=== PATIENT | male | born 1985 | race Caucasian/White ===

== ENCOUNTER 2019-04-09 04:17 | Emergency (ER) | payer SELFPAY ==
[2019-04-09 04:23] VITALS: BP 136/89; PULSE 64; RESP 16; TEMP 36.6; O2SAT 100
--- NOTE | 2019-04-09 04:29 | ED.GENADUL_ITS ---
Discharge Plan Disposition Patient Disposition: HOME Condition: Good Discharge Details Chief Complaint: Nk/Back Pain Clinical Impression: Low back strain Primary Care Provider: Michelle Houston ED Provider: Peterson Machuca Meds and New Rx's Prescriptions: New ibuprofen 600 mg tablet 600 mg PO Q6H PRN (Reason: pain) Qty: 20 RF: 0 cyclobenzaprine 10 mg tablet 10 mg PO TID PRN (Reason: muscle spasm) Qty: 14 RF: 0 Continued albuterol sulfate 8.5 GM HFA aerosol inhaler 2 puff Inhalation PRN PRNRF: 0 Discharge Instructions Instructions: Low Back Strain (ED) Additional Instructions: Use heat and gentle stretching/massage to help relax the muscles. Ibuprofen and cyclobenzaprine as directed. Follow-up with primary care next week if not better. Return to ED for any neurologic changes, numbness, weakness, bladder or bowel dysfunction. Stand Alone Forms: Work Release Referrals: Michelle Houston [Primary Care Provider] - Medical Decision Making Lumbar strain with musculoskeletal back pain and spasm after shoveling on Monday. No neurologic symptomatology or concerns. No direct trauma. Recommend heat and gentle stretching/massage as well as ibuprofen and cyclobenzaprine which she was given here. Provided work note. Asked to follow-up with primary care if not better next week. Return to ED for neurologic changes or concerns. HPI General Mode of arrival: ambulatory . Date/Time Provider Initiated Documentation: 04/09/19 04:29 . Limitations to Documentation: no limitations . Information obtained by: patient and RN notes reviewed . HPI Narrative: Patient presents to ED for evaluation of low back pain. Pain developed after shoveling on Monday. He has tried ibuprofen and acetaminophen intermittently. Back is become more painful and stiff with difficulty bending and twisting. He has no bladder or bowel dysfunction. He has no abdominal pain. He has no numbness or weakness. Related Data Home Medications Medication Instructions Recorded Confirmed albuterol sulfate 2 puff INHALATION PRN PRN 02/25/13 04/09/19 cyclobenzaprine 10 mg PO TID PRN #14 tab 04/09/19 ibuprofen 600 mg PO Q6H PRN #20 tab 04/09/19 Previous Rx's Medication Instructions Recorded cyclobenzaprine 10 mg PO TID PRN #14 tab 04/09/19 ibuprofen 600 mg PO Q6H PRN #20 tab 04/09/19 Allergies Allergy/AdvReac Type Severity Reaction Status Date / Time blueberry [Blueberry] Allergy Unknown Unverified 04/09/19 04:28 Penicillins Allergy as chld Unverified 04/09/19 04:28 General Stated Complaint: Nk/Back Pain YASMEEN: 4 Review of Systems Narrative: As documented in HPI otherwise negative as below. Const: no fever, chills, weakness Resp: no cough, SOB, pleuritic pain CV: no CP, diaphoresis, edema, syncope GI: no abdominal pain, nausea, vomiting, diarrhea Neuro: no headache, numbness, focal weakness, confusion [facility] Medical History (Updated 04/09/19 @ 04:40 by Peterson Machuca MD) Asthma (Chronic) Kidney stones (Inactive) Seizure disorder (Inactive) Surgical History S/P arthroscopic knee surgery (Inactive) S/P cholecystectomy (Chronic) Social History Smoking/Tobacco Use Status: Current every day Drug use: Never Do you feel safe at home: Yes Do you feel safe in your relationship?: Yes Exam Narrative Exam Narrative: Vitals: Afebrile. Normal vitals and room air pulse oximetry. Const: WDWN male in NAD lying on stretcher with legs crossed, on phone. HEENT: NC/AT. Normal facial exam. Eyes: Normal conjunctiva and sclera. Neck: Supple. Trachea midline. Lungs: Normal respiratory effort. Back: Decreased range of motion in lower back in regards to bending and twisting. Low back tenderness diffusely across with spasm noted. Neuro: A+O x 3. Normal speech, mentation, gait. Cranial nerves II - XII grossly intact. No gross motor or sensory deficit. Ext: No C/C/E. Able to lift legs off bed without significant difficulty. Course Vital Signs Vital signs: Vital Signs Temperature 97.9 F 04/09/19 04:23 Pulse 64 04/09/19 04:23 Respiratory Rate 16 04/09/19 04:23 Blood Pressure 136/89 04/09/19 04:23 Pulse Oximetry 100 04/09/19 04:23 Temperature 97.9 F 04/09/19 04:23 Temperature Source Skin 04/09/19 04:23 Pulse 64 04/09/19 04:23 Respiratory Rate 16 04/09/19 04:23 Respiratory Effort Non-Labored 04/09/19 04:27 Blood Pressure 136/89 04/09/19 04:23 Blood Pressure Position Sitting 04/09/19 04:23 Pulse Oximetry 100 04/09/19 04:23 Oxygen Delivery Method Room Air 04/09/19 04:23 Oxygen Flow Rate 0 04/09/19 04:23 Pain Level 8 04/09/19 04:27
[2019-04-09] MEDS: Cyclobenzaprine 10 MG TAB PO (04:42)
[2019-04-09] MEDS: Ibuprofen 600 MG TAB PO (04:42)
[2019-04-09 04:46] VITALS: BP 136/89; PULSE 64; RESP 16; TEMP 36.6; O2SAT 100
== END 2019-04-09 04:45 | disposition home or self-care (01) ==
LOC: ER 04:51
PROVIDERS: Emergency Provider Emergency Medicine; PCP Nurse Practitioner Family
DX: S39.012A Strain of muscle, fascia and tendon of lower back, initial encounter (principal); X50.9XXA Other and unspecified overexertion or strenuous movements or postures, initial encounter
CPT/HCPCS: 99283

== ENCOUNTER 2019-08-30 06:29 | Emergency (ER) | payer SELFPAY ==
[2019-08-30 06:35] VITALS: BP 148/95; PULSE 77; RESP 16; TEMP 36.6; O2SAT 97
--- NOTE | 2019-08-30 06:46 | W.ED.GENAD ---
Discharge Plan Disposition Patient Disposition: HOME Condition: Good Discharge Details Chief Complaint: Sorethroat Clinical Impression: GERD (gastroesophageal reflux disease) Primary Care Provider: Michelle Houston ED Provider: Peterson Machuca [place] Meds and New Rx's Prescriptions: New omeprazole 40 mg capsule,delayed release(DR/EC) 40 mg PO DAILY Qty: 30 RF: 0 Discharge Instructions Instructions: Gastroesophageal Reflux Disease (ED) Additional Instructions: Symptoms that you are describing sound like severe reflux that may be irritating the vocal cords at this point. We will start you on omeprazole to treat severe reflux and have you follow-up with primary care in a couple of weeks. If continued significant symptoms consider referral to ENT. Return to the emergency department for fever, inability to swallow, difficulty breathing, chest pain. Referrals: Michelle Houston [Primary Care Provider] - Medical Decision Making Patient presenting with description of worsening heartburn/reflux over the course of a month. Now having throat pain and sensation of lump in his throat. He denies having chest pain or shortness of breath. He is able to swallow. Suspect reflux with irritation of the upper larynx by what he is describing. He is a smoker so consideration of ENT cancer could be considered. Think it is reasonable to start PPI and refer to primary care. If no improvement consider referral to ENT for nasopharyngeal laryngoscopy. Return to ED for fever, shortness of breath, chest pain, inability to swallow. HPI General Mode of arrival: ambulatory. Date/Time Provider Initiated Documentation: 08/30/19 06:45. Limitations to Documentation: no limitations. Information obtained by: patient and RN notes reviewed. HPI Narrative: Patient presents to ED with complaint of sore throat and difficulty swallowing. Patient reports like he feels like there is a lump in his throat. Points in the general area of his Olegario's apple. Denies fever, URI symptoms, cough, shortness of breath, chest pain. Is able to swallow. Reports heartburn and reflux for over a month now. Has tried medication like Tums, Rolaids, Pepto-Bismol without relief. Has not tried medications like ranitidine or omeprazole. Has not seen primary care. Currently on no medications. Is a smoker. Related Data Home Medications Medication Instructions Recorded Confirmed omeprazole 40 mg PO DAILY #30 cap 08/30/19 Previous Rx's Medication Instructions Recorded omeprazole 40 mg PO DAILY #30 cap 08/30/19 Allergies Allergy/AdvReac Type Severity Reaction Status Date / Time blueberry [Blueberry] Allergy Unknown Unverified 08/30/19 06:46 Penicillins Allergy as chld Unverified 08/30/19 06:46 General Stated Complaint: Sorethroat YASMEEN: 4 Review of Systems Narrative: As documented in HPI otherwise negative as below. Const: no fever, chills, weakness Resp: no cough, SOB, pleuritic pain CV: no CP, diaphoresis, edema, syncope GI: no abdominal pain, nausea, vomiting, diarrhea Neuro: no headache, numbness, focal weakness, confusion [facility] Medical History Asthma (Chronic) Kidney stones (Inactive) Seizure disorder (Inactive) Surgical History S/P arthroscopic knee surgery (Inactive) S/P cholecystectomy (Chronic) Social History Smoking/Tobacco Use Status: Current every day Tobacco Type: cigarettes Drug use: Never Do you feel safe at home: Yes Do you feel safe in your relationship?: Yes Exam Narrative Exam Narrative: Vitals: Afebrile. Elevated blood pressure otherwise normal vitals. Normal room air pulse ox. Const: WDWN male in NAD. HEENT: NC/AT. Normal facial exam. Normal mouth and oropharynx visualized with no exudate, edema, ulcerations. Eyes: Normal conjunctiva and sclera. Neck: Supple. Trachea midline. No stridor. No adenopathy. Lungs: Normal respiratory effort. Neuro: A+O x 3. Normal speech, mentation, gait. Cranial nerves II - XII grossly intact. No gross motor or sensory deficit. Course Vital Signs Vital signs: Vital Signs Temperature 97.9 F 08/30/19 06:35 Pulse 77 08/30/19 06:35 Respiratory Rate 16 08/30/19 06:35 Blood Pressure 148/95 H 08/30/19 06:35 Pulse Oximetry 97 08/30/19 06:35 Temperature 97.9 F 08/30/19 06:35 Temperature Source Temporal Artery Scan 08/30/19 06:35 Pulse 77 08/30/19 06:35 Respiratory Rate 16 08/30/19 06:35 Respiratory Effort 07/10/20 06:39 Blood Pressure 148/95 H 08/30/19 06:35 Blood Pressure Position Sitting 08/30/19 06:35 Pulse Oximetry 97 08/30/19 06:35 Oxygen Delivery Method Room Air 08/30/19 06:35 Oxygen Flow Rate 0 08/30/19 06:35
== END 2019-08-30 07:00 | disposition home or self-care (01) ==
LOC: ER 07:01
PROVIDERS: Emergency Provider Emergency Medicine; PCP Nurse Practitioner Family
DX: K21.9 Gastro-esophageal reflux disease without esophagitis (principal); R09.89 Other specified symptoms and signs involving the circulatory and respiratory systems; R12 Heartburn; F17.210 Nicotine dependence, cigarettes, uncomplicated
CPT/HCPCS: 99283

== ENCOUNTER → 2020-02-18 15:39 | Outpatient (REF) | payer OTHER, SELFPAY ==
[2020-02-18 15:45] LABS: HCT 54.7 % (40.0-50.0); HGB 18.8 g/dL (13.5-17.5); MCH 30.2 pg (27.0-33.0); MCHC 34.4 % (32.0-36.0); MCV 87.8 fL (80-95); MPV 10.8 fL (8.0-11.0); Platelet Count 265 10^3/uL (130-400); RBC 6.23 10^6/uL (4.36-5.78); RDW 13.2 % (11.8-14.1); RDW-SD 42.5 fL; WBC 9.31 10^3/uL (4.4-10.8)
[2020-02-18 16:01] LABS: Anion Gap 9.7 mmol/L (3-11); BUN 14 mg/dL (7-18); CO2 27.3 mmol/L (21.0-32.0); CREATININE 1.28 mg/dL (0.70-1.30); Calcium 9.2 mg/dL (8.5-10.1); Calculated LDL 124 mg/dL (<100); Chloride 105 mmol/L (98-107); Cholesterol 221 mg/dL (<200); Glucose 101 mg/dL (74-106); HDL Cholesterol 32 mg/dL (40-60); Potassium 4.3 mmol/L (3.5-5.1); Sodium 142 mmol/L (136-145); Triglyceride 325 mg/dL (<150)
== END ==
LOC: NCHCN 15:39
PROVIDERS: PCP Nurse Practitioner Family; Visit Provider Physician Assistant
DX: K21.9 Gastro-esophageal reflux disease without esophagitis (principal); E66.8 Other obesity
CPT/HCPCS: 80048; 80061; 85027

== ENCOUNTER 2020-04-01 03:47 | Emergency (ER) | payer OTHER, SELFPAY ==
--- NOTE | 2020-04-01 03:45 | DI.RAD_ITS ---
EXAM: XR FOOT LT COMPLETE CLINICAL HISTORY: left lateral foot pain. TECHNIQUE: 2D digital imaging was performed. COMPARISON: No exams were available for comparison FINDINGS: BONES: No acute fracture is present. No bony destructive lesion is seen. JOINTS: No dislocation present. SOFT TISSUE: Normal. IMPRESSION: Unremarkable radiographs of the left foot. DATA REPOSITORY: RADIATION DOSE DELIVERED:
[2020-04-01 03:52] VITALS: BP 139/86; PULSE 76; RESP 18; TEMP 36.4; O2SAT 99
--- NOTE | 2020-04-01 04:07 | ED.GENADUL_ITS ---
Discharge Plan Disposition Patient Disposition: HOME Condition: Good Discharge Details Clinical Impression: Acute pain of left foot, Metatarsalgia of left foot Primary Care Provider: Michelle Houston ED Provider: Marco Antonio Bernal Home Meds and New Rx's Prescriptions: Continued omeprazole 40 mg capsule,delayed release(DR/EC) 40 mg PO DAILY Qty: 30 RF: 0 Discharge Instructions Instructions: Metatarsalgia (DC) Additional Instructions: At this time your x-ray shows no evidence of fracture. I suspect you have combination of mild arthritis in the joints combined with notable irritation to your plantar fascia/joint. Please keep off your foot for the next 2 to 3 days. Then gradually perform weightbearing as tolerated. Please take 800 mg of ibuprofen and 1000 mg of Tylenol as needed every 6 hours for pain. If you notice any worsening of your symptoms, or any new symptoms such as vomiting, diarrhea, fever, chills, shortness of breath, chest pain, numbness, weakness, or fainting , please return immediately to the emergency department for reevaluation. Please follow up with your primary care provider as soon as possible for reassessment and reevaluation. As always, it was a pleasure participating in your medical care today. Stand Alone Forms: Work Release Referrals: Michelle Houston [Primary Care Provider] - Medical Decision Making 34-year-old male presents today for evaluation of left foot pain. Patient states that he has not changed any of his regular activity to any degree, however last night he noticed some mild soreness in the lateral aspect of his left foot. No new footwear or changes in shoes. He states that this morning when he got up on his first step out of bed he noticed a sharp pain in the lateral aspect of his midfoot region. Pain is present with stepping and weightbearing, pain is only minimally present when there is no weightbearing. He denies any history of gout or family history of gout. He denies any trauma. He has not taken any medications for this.. No other complaints this time. Exam is relatively unremarkable, no signs of warmth or redness, no evidence of infection or significant trauma. No swelling. Mild tenderness over the lateral fifth metatarsal, as well as the lateral aspect of the cuboid that area. Mild tenderness over the plantar fascia. Suspect potential osseous injury versus mild fascial strain/irritation. Will give NSAIDs, Lidoderm patch, crutches, and x-ray to rule out fracture. 4:45 AM X-ray results per virtual radiology shows no evidence of acute fracture process. Patient's pain is mildly improved with NSAIDs and Lidoderm patch. Given crutches from use. Suspect metatarsalgia versus mild plantar fasciitis. Will give work note, recommend for ice, rest and NSAIDs. Discussed red flags which to return. I have extensively reviewed the treatment plan and discharge instructions with the patient. I have addressed all patient concerns at this time. The patient was made aware of what symptoms to monitor for that would warrant a return to the emergency department. Discussed the plan with the patient, they demonstrate verbal understanding and agreement with our assessment and plan at this time. The documentation in this chart was dictated using [employer] dictation software. Please excuse any dictation errors. FINDINGS: Bones/joints: Normal. Soft tissues: Normal. IMPRESSION: No acute findings. Thank you for allowing us to participate in the care of your patient. Dictated and Authenticated by: Mingo Perez MD 04/01/2020 4:38 AM Eastern Time ([place] & [place]) HPI General Date/Time Provider Initiated Documentation: 04/01/20 03:50 . HPI Narrative: 34-year-old male presents today for evaluation of left foot pain. Patient states that he has not changed any of his regular activity to any degree, however last night he noticed some mild soreness in the lateral aspect of his left foot. No new footwear or changes in shoes. He states that this morning when he got up on his first step out of bed he noticed a sharp pain in the lateral aspect of his midfoot region. Pain is present with stepping and weightbearing, pain is only minimally present when there is no weightbearing. He denies any history of gout or family history of gout. He denies any trauma. He has not taken any medications for this.. No other complaints this time. Related Data Home Medications Medication Instructions Recorded Confirmed omeprazole 40 mg PO DAILY #30 cap 08/30/19 Previous Rx's Medication Instructions Recorded omeprazole 40 mg PO DAILY #30 cap 08/30/19 Allergies Allergy/AdvReac Type Severity Reaction Status Date / Time blueberry [Blueberry] Allergy Unknown Unverified 08/30/19 06:46 Penicillins Allergy as chld Unverified 08/30/19 06:46 General Stated Complaint: Orthopedic YASMEEN: 4 Review of Systems All systems reviewed & are unremarkable except as noted in HPI and below [facility] Medical History (Updated 04/01/20 @ 04:45 by Marco Antonio Bernal DO) Asthma Kidney stones Seizure disorder Surgical History S/P arthroscopic knee surgery S/P cholecystectomy Social History Smoking/Tobacco Use Status: Current every day Tobacco Type: cigarettes Smoking risk assessment performed?: Yes Drug use: Never Do you feel safe at home: Yes Do you feel safe in your relationship?: Yes Exam Narrative Exam Narrative: 1.Const: Well-nourished, Well-developed, appearing stated age 2.Eyes: PERRL, no conjunctival injection, and symmetrical lids. 3.ENT: Atraumatic external nose and ears. Moist MM. Neck: Symmetric, trachea midline, No thyromegaly. 4.CVS: +S1/S2, No murmurs or gallops. Peripheral pulses 2+ and equal in all extremities. Brisk capillary refill in all extremities. 5.RESP: Unlabored respiratory effort. Clear to auscultation bilaterally. No wheezes rales or rhonchi 6.GI: Soft, Nontender/Nondistended, No hepatosplenomegaly. No guarding or rebound. 7.MSK: Normocephalic/Atraumatic, Extremities w/o deformity. No cyanosis or clubbing, Normal movement of all extremities. Left foot demonstrates no redness, erythema, or warmth of significance. Capillary refill brisk, dorsalis pedis and posterior tibial pulse +2 bilaterally. Palpation of the foot elicits tenderness over the cuboid on the lateral aspect and the proximal aspect of the fourth and fifth metatarsal. No pain distally. There appears to be no pain with flexion or extension of the distal phalanges. Minimal calcaneal te nderness. Mild tenderness over the plantar fascia. 8.Skin: Warm, Dry. No rashes or lesions. 9.Neuro: surgical assistant II-XII grossly intact. Sensation grossly intact, no focal neurologic deficits. 10.Psych: (AAO) x3. Appropriate mood and affect Course Vital Signs Vital signs: Vital Signs Temperature 36.4 C L 04/01/20 03:52 Pulse 76 02/10/21 03:52 Respiratory Rate 18 04/01/20 03:52 Blood Pressure 139/86 04/01/20 03:52 Pulse Oximetry 99 04/01/20 03:52 Temperature 36.4 C L 04/01/20 03:52 Temperature Source Temporal Artery Scan 04/01/20 03:52 Pulse 76 04/01/20 03:52 Respiratory Rate 18 04/01/20 03:52 Respiratory Effort Non-Labored 04/01/20 03:53 Blood Pressure 139/86 04/01/20 03:52 Pulse Oximetry 99 04/01/20 03:52 Oxygen Delivery Method Room Air 04/01/20 03:52 Oxygen Flow Rate 0 04/01/20 03:52 Pain Level 7 04/01/20 03:55
[2020-04-01] MEDS: Acetaminophen 500 MG TAB 1000 MG PO (04:15)
[2020-04-01] MEDS: Ketorolac 30 MG/ML VIAL IM (04:15)
[2020-04-01] MEDS: Lidocaine 5% Patch 1 PATCH TP (04:16)
--- NOTE | 2020-04-01 04:39 | DI.VRAD_ITS ---
PROCEDURE INFORMATION: Exam: XR Left Foot Exam date and time: 04/01/2020 4:01 AM Age: 34 years old Clinical indication: Patient HX: Left lateral foot pain, ; additional info: Ap image done weight bearing per Dr. Bernal TECHNIQUE: Imaging protocol: XR Left foot. Views: 3 or more views. COMPARISON: No relevant prior studies available. FINDINGS: Bones/joints: Normal. Soft tissues: Normal. IMPRESSION: No acute findings. Dictated and Authenticated by: Mingo Perez MD. Ordering:ROSIE Bernard MD
[2020-04-01 04:53] VITALS: BP 139/86; PULSE 76; RESP 18; TEMP 36.4; O2SAT 99
== END 2020-04-01 04:51 | disposition home or self-care (01) ==
PROVIDERS: Emergency Provider Student in an Organized Health Care Education/Training Program; PCP Nurse Practitioner Family
DX: M77.42 Metatarsalgia, left foot (principal)
CPT/HCPCS: 96372; 99284; 73630; 99283; J1885

== ENCOUNTER 2020-06-04 20:45 | Emergency (ER) | payer OTHER, SELFPAY ==
[2020-06-04] VITALS (13 sets, daily range): BP systolic 117–148; BP diastolic 64–83; PULSE 66–86; RESP 16–24; TEMP 37; O2SAT 93–98
--- NOTE | 2020-06-04 20:45 | RT.EKG_ITS ---
APPROVED REPORT Exam: Resting ECG Patient Location: E HR:75 bpm ECG Measurements Heart Rate 75 AXIS CO 138 P 53 QRSd 92 QRS 44 QT 374 T 16 QTc 417 Conclusion Sinus rhythm...normal P axis, V-rate 60- 99
--- NOTE | 2020-06-04 21:00 | DI.CT_ITS ---
EXAM: CT CHEST PE CTA CLINICAL HISTORY: shortness of breath. TECHNIQUE: Imaging Protocol: Axial CT angiography was performed with multi-slice acquisition and mu lti-planar and/or 3D reconstructions. CONTRAST MATERIAL: Intravenous: Visipaque 320 contrast volume:100 mL COMPARISON: CT RENAL COLIC WO CONTRAST from 06/14/2011 FINDINGS: Tracheobronchial tree: Patent where visualized. Pulmonary parenchyma: No consolidation or dominant measurable mass. No architectural distortion. Pulmonary Arteries: No evidence of filling defect to suggest pulmonary emboli. Mediastinum and Bianca: No dominant adenopathy or fluid collection. Visualized thyroid gland: Unremarkable. Pleura: No effusion or pneumothorax. Heart: The heart is not dilated. No coronary artery calcifications are seen. No pericardial effusion. Aorta: Thoracic aorta non-dilated. Upper abdomen: Status post cholecystectomy. No biliary ductal dilatation. Soft tissues: Bilateral gynecomastia. Bones: Normal. IMPRESSION: No evidence of pulmonary embolism, thoracic aortic dissection or aneurysm. RADIATION DOSE DELIVERED: 437.15mGy.cm Total DLP DATA REPOSITORY: All CT scans at this facility are submitted to the National Radiology Data Registry (NRDR) Dose Index Registry (DIR) with the [employer] (ACR). RADIATION OPTIMIZATION: All CT scans at this facility use at least one of these dose optimization te chniques: automated exposure control; mA and/or kV adjustment per patient size (includes targeted exa ms where dose is matched to clinical indication); or iterative reconstruction.
--- NOTE | 2020-06-04 21:04 | ED.GENADUL_ITS ---
Discharge Plan Disposition Patient Disposition: HOME Condition: Stable Discharge Details Clinical Impression: Asthma, Shortness of breath Primary Care Provider: Michelle Houston ED Provider: Grzegorz Byrd Home Meds and New Rx's Prescriptions: New prednisone 20 mg tablet 60 mg PO DAILY 4 Days Qty: 12 RF: 0 Continued omeprazole 40 mg capsule,delayed release(DR/EC) 40 mg PO DAILY Qty: 30 RF: 0 ibuprofen 800 mg Tablet 800 mg PO TID PRNRF: 0 albuterol sulfate 90 mcg/actuation Hfa Aerosol Inhaler 2 puff INHALATION Q6H PRNRF: 0 Discharge Instructions Instructions: Asthma (ED) Additional Instructions: Your blood work and cat scan did not show any concerning findings. You have chronic increase in a blood cell called hemoglobin that is likely form your smoking history follow up with your primary care provider within one week. Discuss having your hemoglobin rechecked. if you feel more ill, have worsening difficulty breathing or worsening pain return to the emergency department Stand Alone Forms: PENDING COVID-19 TESTING Medical Decision Making 35 yo male with hx of asthma but doesn't usually take meds for this, chronic smoker, comes in with cough and shortness of breath for 4 days. Denies fevers, chills, diaphoresis, n/v. He states he used his albuterol just prior to arrival and feels improved after that. HE arrives speaking in full sentences in no distress, has mild apical wheezing on exam otherwise clear lungs, no jvd and no murmurs. I suspect asthma exacerbation and possible undiagnosed copd from his smoking, will treat with dose of solumedrol and reassess, just used albuterol and only has mild apical wheezing so will hold on neb at this time. His wells score is moderate, will obtain CTA to evaluate for possible PE vs pneumonia. Heart score is 2, will obtain ecg and troponin though symptoms with the cough do not seem typical for acs. Could also be covid, once dispo is determined will either send send out covid swab or in house covid. pt remains stable, speaking in full sentences. H/H elevated but has been chronically and not significantly increased from baseline, suspect this could be due to his chronic smoking. Will continue to monitor pt continues to appear well speaking in full sentences, rest of labs and imaging unremarkable. Given over 3 days of symptoms do not feel repeat troponin indicated. Will d/c and have him f/u with pcp. Will also send covid test. Usual and customary return precuations given Differential Diagnosis Differential Diagnosis: asthma, copd, pneumonia, covid, PE Lab Data Lab results reviewed: Yes I reviewed the patient's lab results. ECG Data Attestation: I personally reviewed and interpreted this ECG (s) as follows: Prior ECG tracings: not available for review Interpretation: sinus rhythm, rate of 75, pr 138, no acute st t wave ischemic findings HPI General Mode of arrival: ambulatory . Date/Time Provider Initiated Documentation: 06/04/20 20:47 . Limitations to Documentation: no limitations . Information obtained by: patient . History of Present Illness 35 year old M presents to the emergency department with the chief complaint of cough, described as moderate, Patient reports no radiation. Patient started experiencing this day(s) (4) and it has been constant. other things that improve symptom(s), (albuterol) No exacerbating factors reported . Patient notes shortness of breath. Patient did receive the following treatments prior to arrival, other (albuterol) Related Data Home Medications Medication Instructions Recorded Confirmed omeprazole 40 mg PO DAILY #30 cap 08/30/19 06/04/20 albuterol sulfate 2 puff INHALATION Q6H PRN 06/04/20 06/04/20 ibuprofen 800 mg PO TID PRN 06/04/20 06/04/20 prednisone 60 mg PO DAILY 4 Days #12 tab 06/04/20 Previous Rx's Medication Instructions Recorded omeprazole 40 mg PO DAILY #30 cap 08/30/19 prednisone 60 mg PO DAILY 4 Days #12 tab 06/04/20 Allergies Allergy/AdvReac Type Severity Reaction Status Date / Time blueberry [Blueberry] Allergy Unknown Unverified 06/04/20 21:21 Penicillins Allergy as chld Unverified 06/04/20 21:21 General Stated Complaint: SOB YASMEEN: 3 Review of Systems All systems reviewed & are unremarkable except as noted in HPI and below Constitutional Constitutional: Denies chills, Denies fever(s) and Denies weakness Cardiovascular Cardiovascular: Denies chest pain Gastrointestinal Gastrointestinal: Denies abdominal pain, Denies nausea and Denies vomiting Musculoskeletal Musculoskeletal: Denies joint swelling Neurologic Neurologic: Denies weakness [facility] Medical History (Updated 06/04/20 @ 21:30 by Grzegorz Byrd MD) Asthma Kidney stones Seizure disorder Surgical History S/P arthroscopic knee surgery S/P cholecystectomy Social History Smoking/Tobacco Use Status: Current every day Tobacco Type: cigarettes Smoking risk assessment performed?: Yes Alcohol Intake: current Alcohol Intake frequency: holidays/special occasions only Drug use: Never Substance use type: does not use Do you feel safe at home: Yes Do you feel safe in your relationship?: Yes Exam Const General: no acute distress Orientation: alert HENMT Head: normal to inspection Ears: external ears normal General nose exam: external nose normal Mouth: moist mucous membranes Eyes General: appearance normal, both eyes and all related structures Neck Neck: normal visual inspection Resp Effort & Inspection: normal respiratory effort and able to speak in complete sentences Cardio Rate: regular rate Skin General skin exam: no rashes or lesions noted Neuro General: patient alert and patient oriented x3 Extrem General: normal to inspection Psych Mental Status: mental status grossly normal Course Vital Signs Vital signs: Vital Signs Temperature 37 C 06/04/20 20:52 Pulse 82 06/04/20 20:52 Respiratory Rate 16 06/04/20 20:52 Blood Pressure 148/83 H 06/04/20 20:52 Pulse Oximetry 93 06/04/20 20:52 Temperature 37 C 06/04/20 20:52 Temperature Source Skin 06/04/20 20:52 Pulse 82 06/04/20 20:52 Respiratory Rate 24 06/04/20 20:57 Respiratory Effort Non-Labored 06/04/20 20:57 Respiratory Depth Normal 06/04/20 20:57 Respiratory Pattern Normal 06/04/20 20:57 Blood Pressure 148/83 H 06/04/20 20:52 Blood Pressure Position Supine 06/04/20 20:52 Pulse Oximetry 93 06/04/20 20:52 Oxygen Delivery Method Room Air 06/04/20 20:52 Oxygen Flow Rate 0 06/04/20 20:52 Pain Level 0 06/04/20 20:52
[2020-06-04 21:26] LABS: Abs Immature Grans 0.04 10^3/uL (0.0-0.06); Absolute Eosinophil Count 0.26 10^3/uL (0.0-0.7); Absolute Monocyte Count 0.72 10^3/uL (0.1-0.8); Absolute Neutrophil Count 6.63 10^3/uL (1.2-6.7); Basophils % 0.8; Eosinophils % 2.2; HCT 52.1 % (40.0-50.0); HGB 18.1 g/dL (13.5-17.5); Immature Grans % 0.3; Lymphocytes % 35.2; MCH 30.7 pg (27.0-33.0); MCHC 34.7 % (32.0-36.0); MCV 88.5 fL (80-95); MPV 10.2 fL (8.0-11.0); Neutrophils % 55.5; Nucleated RBC 0 %; Platelet Count 264 10^3/uL (130-400); RBC 5.89 10^6/uL (4.36-5.78); RDW 12.9 % (11.8-14.1); RDW-SD 42.2 fL; WBC 11.94 10^3/uL (4.4-10.8)
[2020-06-04] MEDS: Normal Saline Flush 10 ML SYR IVP (21:41)
[2020-06-04] MEDS: Normal Saline - Diluent 50 ML VIAL IV (21:41)
[2020-06-04 21:48] LABS: ALT 102 U/L (16-63); AST 31 U/L (15-37); Albumin 3.8 g/dL (3.4-5.0); Alkaline Phosphatase 92 U/L (46-116); Anion Gap 9.9 mmol/L (3-11); BUN 15 mg/dL (7-18); Bilirubin, Total 0.3 mg/dL (0.2-1.0); CO2 27.1 mmol/L (21.0-32.0); CREATININE 1.3 mg/dL (0.70-1.30); Calcium 9.2 mg/dL (8.5-10.1); Chloride 106 mmol/L (98-107); Glucose 102 mg/dL (74-106); Sodium 143 mmol/L (136-145); Total Protein 7.1 g/dL (6.4-8.2); Troponin I < 0.05 ng/mL (<0.06)
[2020-06-04] MEDS: methylPREDNISolone SUCC 125 MG VIAL IVP (21:50)
--- NOTE | 2020-06-04 22:04 | DI.VRAD_ITS ---
PROCEDURE INFORMATION: Exam: CTA Chest With Contrast Exam date and time: 06/04/2020 9:35 PM Age: 35 years old Clinical indication: Shortness of breath TECHNIQUE: Imaging protocol: Computed tomographic angiography of the chest with contrast. 3D rendering (Not supervised by radiologist): MIP and/or 3D reconstructed images were created by the technologist. Contrast material: VISISPAUE 320; Contrast volume: 100 ml; Contrast route: INTRAVENOUS (IV); COMPARISON: No relevant prior studies available. FINDINGS: No evidence of pulmonary embolism. Normal thoracic aorta without aneurysm or dissection. No airspace consolidation, pleural effusion or pneumothorax. Status post cholecystectomy. There is bilateral gynecomastia. No fracture. IMPRESSION: No evidence of pulmonary embolism. Dictated and Authenticated by: Julius Shipley MD. Ordering:RUSSELL Lantigua MD
[2020-06-06 15:04] LABS: COVID-19 RT-PCR UVMMC Result Negative (Negative)
== END 2020-06-04 22:21 | disposition home or self-care (01) ==
PROVIDERS: Emergency Provider Emergency Medicine; PCP Nurse Practitioner Family
DX: J45.909 Unspecified asthma, uncomplicated (principal); R06.02 Shortness of breath; Z20.822 Contact with and (suspected) exposure to COVID-19
CPT/HCPCS: 71275; 80053; 93005; 96374; 99285; U0003; 83735; 84484; 85025; 93010; 99283; J2930

== ENCOUNTER 2020-09-21 14:04 | Emergency (ER) | payer OTHER, SELFPAY ==
[2020-09-21 14:06] VITALS: BP 149/90; PULSE 92; RESP 16; TEMP 36.4; O2SAT 97
--- NOTE | 2020-09-21 14:15 | DI.CT_ITS ---
Exam(s) CT RENAL COLIC WO EXAM: CT RENAL COLIC WO INDICATION: Left Flank pain, R/O Kidney stone. COMPARISON: CT CT CHEST PE CTA from 06/04/2020 TECHNIQUE: CT examination was performed without contrast administration. FINDINGS: Images obtained through the lung bases are unremarkable. Visualized portions of the liver and splee n appear intact except for possible mild hepatic steatosis. Visualized portions of the pancreas are unremarkable. Gallbladder has been surgically removed. Bile ducts are CT normal. Abdominal aorta is of normal diameter. No significant abdominal wall hernia. No significant abdominal or pelvic adenopathy. Adrenals appear normal bilaterally. There are bilateral nonobstructing renal calculi. The largest is in the midpole of the left kidney m easures 4 millimeters in greatest diameter. There is no evidence of hydronephrosis or ureterolithias is. Urinary bladder is unremarkable in appearance. IMPRESSION: Bilateral nonobstructing renal calculi. No evidence of acute process. RADIATION DOSE DELIVERED: 1,101.63mGy.cm DLP 1,101.63mGy.cm Total DLP CTDIvol RADIATION OPTIMIZATION: All CT scans at this facility use at least one of these dose optimization te chniques: automated exposure control; mA and/or kV adjustment per patient size (includes targeted exa ms where dose is matched to clinical indication); or iterative reconstruction.
--- NOTE | 2020-09-21 14:25 | W.ED.GENAD ---
Discharge Plan Disposition Patient Disposition: HOME Condition: Stable Discharge Details Clinical Impression: Kidney stone on left side Primary Care Provider: Shay Orellana ED Provider: Emily Yo Home Meds and New Rx's Prescriptions: New tamsulosin 0.4 mg capsule 0.4 mg PO QHS 7 Days Qty: 7 RF: 0 ibuprofen 800 mg tablet 800 mg PO Q8H PRN (Reason: pain) Qty: 20 RF: 0 No Action omeprazole 40 mg capsule,delayed release(DR/EC) 40 mg PO DAILY Qty: 30 RF: 0 Discharge Instructions Instructions: Kidney Stones (ED) Additional Instructions: Strain all urine. Please call and make an appointment with urology in the next 3 to 5 days. Take Flomax once daily before bedtime and ibuprofen 800 mg 3 times a day as needed for pain. Return for any fever, vomiting, inability to urinate or any concerns. Follow up with primary care provider in 3-5 days. Return to ED sooner if any worsening or concerns. Increase oral fluids. Stand Alone Forms: Work Release Referrals: Rey Mfcarland MD [ [facility] STAFF PHYSICIAN] - 3 days Medical Decision Making 35-year-old male with history of kidney stones presents with left flank pain which began today describes as sharp and constant radiates into his left lower quadrant of his abdomen. Denies any associated symptoms. At this time CBC, CMP, urinalysis, Toradol 30 mg, Zofran 4, CT without contrast ordered to rule out kidney stone. Differential diagnosis includes but not limited to kidney stone, colitis, diverticulitis. CBC shows RBCs 6.37, hemoglobin 19.3 which is a critical high however, upon lab review hemoglobin usually runs high in the 18 range, hematocrit 56.5 absolute neutrophil 7.04 CMP largely within normal limits glucose 146 AST slightly elevated at 42 ALT 129 1600: Patient reevaluation reports improved after receiving Toradol and [address] is pending at this time. Patient has returned from CT staff rn informed me that he has not given a urine sample yet another additional liter normal saline ordered at this time for a total of [address] ABD/Pelvis W/O Renal Colic Lungs: The visualized lung bases are clear. Liver: There is a diffuse decrease in hepatic parenchymal density, consistent with fatty infiltration. There is no evidence for a mass. Gallbladder and bile ducts: There has been a cholecystectomy. Pancreas: Unremarkable. No ductal dilation. Spleen: There is mild splenomegaly with the spleen measuring 13.3 cm in AP span. Adrenal glands: Normal. No mass. Kidneys and ureters: There is a 4 mm and 2 mm calculus in the left renal collecting system. There is a 2 mm calculus in the right renal collecting system. There is no hydronephrosis. Stomach and bowel: Unremarkable. No obstruction. No mucosal thickening. Appendix: No evidence of appendicitis. Intraperitoneal space: Unremarkable. No free air. No significant fluid collection. Vasculature: Unremarkable. No abdominal aortic aneurysm. Lymph nodes: Unremarkable. No enlarged lymph nodes. Urinary bladder: Unremarkable as visualized. Reproductive: Unremarkable as visualized. Bones/joints: Unremarkable. No acute fracture. Soft tissues: Unremarkable. IMPRESSION: 1. Bilateral nephrolithiasis without evidence for obstructive uropathy. 2. Mild splenomegaly. Discussed CT results with patient and family who verbalized understanding. Patient was given a strainer by staff rn prior to discharge. Please return to clinic for follow-up with urology in 3-5 days if possible. Patient was given a prescription for 80 mg ibuprofen 3 times daily as needed and tamsulosin 0.4 mg daily at bedtime. Patient remained hemodynamically stable alert and oriented throughout remainder stay did not require any additional medications no vomiting no nausea. This text was generated using [employer] system, please disregard any oddities of phrase or misspellings. HPI General Mode of arrival: ambulatory. Date/Time Provider Initiated Documentation: 09/21/20 14:11. Limitations to Documentation: no limitations. Information obtained by: patient and RN notes reviewed. HPI Narrative: 35-year-old male presents to the ER chief complaint of left flank pain that radiates around left lower quadrant. Pain did start approximately an hour prior to arrival. He does have a history of kidney stones last couple years ago to the right side. He reports having to have surgical intervention tether removed. He reports sharp constant pain, denies any fever chills nausea vomiting diarrhea or trouble urinating. He is everyday smoker denies drugs or alcohol. Past medical history includes asthma, kidney stones, seizure disorder arthroscopic knee surgery and cholecystectomy. Related Data Home Medications Medication Instructions Recorded Confirmed omeprazole 40 mg PO DAILY #30 cap 08/30/19 09/21/20 ibuprofen 800 mg PO Q8H PRN #20 tab 09/21/20 tamsulosin 0.4 mg PO QHS 7 Days #7 cap 09/21/20 Previous Rx's Medication Instructions Recorded omeprazole 40 mg PO DAILY #30 cap 08/30/19 ibuprofen 800 mg PO Q8H PRN #20 tab 09/21/20 tamsulosin 0.4 mg PO QHS 7 Days #7 cap 09/21/20 Allergies Allergy/AdvReac Type Severity Reaction Status Date / Time blueberry [Blueberry] Allergy Unknown Unverified 09/21/20 14:10 Penicillins Allergy as chld Unverified 09/21/20 14:10 General Stated Complaint: FlankPain YASMEEN: 3 Review of Systems All systems reviewed & are unremarkable except as noted in HPI and below Genitourinary Genitourinary: Reports hematuria (Denies), Denies difficulty urinating, Denies dysuria, Reports flank pain, Denies scrotal swelling, Denies testicular mass and Denies testicular pain [facility] Medical History (Updated 09/21/20 @ 17:05 by Emily Yo) Asthma Kidney stones Seizure disorder Surgical History S/P arthroscopic knee surgery S/P cholecystectomy Social History Smoking/Tobacco Use Status: Current every day Tobacco Type: cigarettes Smoking risk assessment performed?: Yes Alcohol Intake: former Drug use: Never Substance use type: does not use Do you feel safe at home: Yes Do you feel safe in your relationship?: Yes Exam Narrative Exam Narrative: Constitutional: Alert and oriented x3. Appears stated age. Normal body habitus. Head: Normocephalic, no trauma. Eyes: Pupils PERRLA, Red reflex noted, EOM's intact. Eyelids symmetrical without lesions, discharge, or swelling. ENT: Bilateral TM's WNL, External ear normal to inspection, no mastoid TTP, swelling, or erythema, Nasal turbinates WNL, no nasal discharge. Normal dentition, Posterior pharynx WNL, no exudate. Chest: RRR, Normal S1, S2, distal pulses intact. Resp: Lungs clear to auscultation bilaterally, no wheezes, rales, or rhonchi. Abdomen: Positive left CVA tenderness with palpation, abdomen soft, nondistended tenderness to left lower quadrant with palpation no masses palpated. Musculoskeletal: Normal gait, 5/5 strength to all four extremities. Skin: No suspicious rashes or lesions. Capillary refill less than 2 sec. Neurologic: Cranial nerves II-XII intact. Alert and oriented x 3. Hematologic/Lymphatic: No ecchymosis, no lymphadenopathy. Course Vital Signs Vital signs: Vital Signs Temperature 36.4 C L 09/21/20 14:06 Pulse 92 H 09/21/20 14:06 Respiratory Rate 16 09/21/20 14:06 Blood Pressure 149/90 H 09/21/20 14:06 Pulse Oximetry 97 09/21/20 14:06 Temperature 36.4 C L 09/21/20 14:06 Temperature Source Temporal Artery Scan 09/21/20 14:06 Pulse 92 H 09/21/20 14:06 Respiratory Rate 16 09/21/20 14:06 Respiratory Effort Non-Labored 09/21/20 14:09 Blood Pressure 149/90 H 09/21/20 14:06 Blood Pressure Position Sitting 09/21/20 14:06 Pulse Oximetry 97 09/21/20 14:06 Oxygen Delivery Method Room Air 09/21/20 14:06 Oxygen Flow Rate 0 09/21/20 14:06 Pain Level 8 09/21/20 14:06
[2020-09-21 14:27] LABS: Abs Immature Grans 0.03 10^3/uL (0.0-0.06); HCT 56.5 % (40.0-50.0); MCH 30.3 pg (27.0-33.0); MCHC 34.2 % (32.0-36.0); MCV 88.7 fL (80-95); MPV 9.8 fL (8.0-11.0); Nucleated RBC 0 %; Platelet Count 252 10^3/uL (130-400); RBC 6.37 10^6/uL (4.36-5.78); RDW 12.9 % (11.8-14.1); RDW-SD 42.4 fL
[2020-09-21] MEDS: Ketorolac 30 MG/ML VIAL IVP (14:28)
[2020-09-21 14:43] LABS: HGB 19.3 g/dL (13.5-17.5)
[2020-09-21] MEDS: Normal Saline 1,000 ML 1000 ML IV ×2 (14:45→16:42)
[2020-09-21 14:51] LABS: ALT 129 U/L (16-63); AST 42 U/L (15-37); Albumin 4.1 g/dL (3.4-5.0); Alkaline Phosphatase 85 U/L (46-116); Anion Gap 10.6 mmol/L (3-11); BUN 16 mg/dL (7-18); Bilirubin, Total 0.5 mg/dL (0.2-1.0); CO2 25.4 mmol/L (21.0-32.0); CREATININE 1.2 mg/dL (0.70-1.30); Chloride 107 mmol/L (98-107); Glucose 146 mg/dL (74-106); Potassium 3.8 mmol/L (3.5-5.1); Sodium 143 mmol/L (136-145); Total Protein 7.7 g/dL (6.4-8.2)
[2020-09-21 14:52] LABS: Absolute Eosinophil Count 0.21 10^3/uL (0.0-0.7); Absolute Lymphocyte Count 2.63 10^3/uL (1.2-3.4); Absolute Monocyte Count 0.63 10^3/uL (0.1-0.8); Absolute Neutrophil Count 7.04 10^3/uL (1.2-6.7); Atypical Lymphocytes % 4
[2020-09-21 14:53] LABS: Diff Comment Manual Differential; RBC Morphology Normal
[2020-09-21 16:16] LABS: Lipase 191 U/L (73-393)
--- NOTE | 2020-09-21 16:50 | DI.VRAD_ITS ---
PROCEDURE INFORMATION: Exam: CT Abdomen And Pelvis Without Contrast Exam date and time: 09/21/2020 2:26 PM Age: 35 years old Clinical indication: Other: Left flank pain, R/O kidney stone TECHNIQUE: Imaging protocol: Computed tomography of the abdomen and pelvis without contrast. Radiation optimization: All CT scans at this facility use at least one of these dose optimization techniques: automated exposure control; mA and/or kV adjustment per patient size (includes targeted exams where dose is matched to clinical indication); or iterative reconstruction. COMPARISON: CT PELVIC/LOWER ABD WITHOUT CONT 12/20/2013 10:20 AM FINDINGS: Limitations: Evaluation of the solid organs and vasculature is limited wiithout IV contrast. Lungs: The visualized lung bases are clear. Liver: There is a diffuse decrease in hepatic parenchymal density, consistent with fatty infiltration. There is no evidence for a mass. Gallbladder and bile ducts: There has been a cholecystectomy. Pancreas: Unremarkable. No ductal dilation. Spleen: There is mild splenomegaly with the spleen measuring 13.3 cm in AP span. Adrenal glands: Normal. No mass. Kidneys and ureters: There is a 4 mm and 2 mm calculus in the left renal collecting system. There is a 2 mm calculus in the right renal collecting system. There is no hydronephrosis. Stomach and bowel: Unremarkable. No obstruction. No mucosal thickening. Appendix: No evidence of appendicitis. Intraperitoneal space: Unremarkable. No free air. No significant fluid collection. Vasculature: Unremarkable. No abdominal aortic aneurysm. Lymph nodes: Unremarkable. No enlarged lymph nodes. Urinary bladder: Unremarkable as visualized. Reproductive: Unremarkable as visualized. Bones/joints: Unremarkable. No acute fracture. Soft tissues: Unremarkable. IMPRESSION: 1. Bilateral nephrolithiasis without evidence for obstructive uropathy. 2. Mild splenomegaly. Dictated and Authenticated by: Noel Germain MD. Ordering:PREET Diaz MD
[2020-09-21 16:59] VITALS: BP 125/82; PULSE 55; RESP 18; TEMP 36.6; O2SAT 97
[2020-09-21 17:23] LABS: Bilirubin Negative (Negative); Blood Negative (Negative); Clarity Clear (Clear); Glucose Negative (Negative); Ketones Negative (Negative); Leukocyte Esterase Negative (Negative); Nitrite Negative (Negative); Specific Gravity >= 1.030 (1.005-1.025); Urobilinogen 0.2 EU/dL (Up TO 0.2); pH 5.5 (5-8)
[2020-09-21] MEDS: Tamsulosin 0.4 MG CAPCR PO (17:29)
--- NOTE | 2020-09-21 17:52 | NUR.NOTE ---
Nursing Note: Referral faxed to [facility] Urology for left kidney stone, time to be determined by Urology. Ashley Franklni
== END 2020-09-21 17:57 | disposition home or self-care (01) ==
PROVIDERS: Emergency Provider Registered Nurse Emergency; PCP Physician Assistant
DX: N20.0 Calculus of kidney (principal); Z87.442 Personal history of urinary calculi
CPT/HCPCS: 80053; 83690; 96361; 96374; 99284; 74176; 81003; 85025; J1885

== ENCOUNTER 2020-10-01 16:37 | Emergency (ER) | payer OTHER, SELFPAY ==
[2020-10-01 17:05] VITALS: BP 130/85; PULSE 99; RESP 16; TEMP 36.6; O2SAT 93
[2020-10-01 18:08] LABS: Abs Immature Grans 0.05 10^3/uL (0.0-0.06); Absolute Eosinophil Count 0.22 10^3/uL (0.0-0.7); Absolute Lymphocyte Count 3.78 10^3/uL (1.2-3.4); Basophils % 0.8; Eosinophils % 1.8; HCT 54.5 % (40.0-50.0); Immature Grans % 0.4; Lymphocytes % 30.5; MCH 30.7 pg (27.0-33.0); MCHC 34.9 % (32.0-36.0); MPV 10.1 fL (8.0-11.0); Monocytes % 6.1; Neutrophils % 60.4; Nucleated RBC 0 %; Platelet Count 282 10^3/uL (130-400); RBC 6.19 10^6/uL (4.36-5.78); RDW-SD 42.1 fL; WBC 12.39 10^3/uL (4.4-10.8)
[2020-10-01 18:14] LABS: Absolute Monocyte Count 0.76 10^3/uL (0.1-0.8); Absolute Neutrophil Count 7.48 10^3/uL (1.2-6.7)
[2020-10-01 18:15] LABS: Anion Gap 8.1 mmol/L (3-11); BUN 18 mg/dL (7-18); CO2 25.9 mmol/L (21.0-32.0); CREATININE 1.2 mg/dL (0.70-1.30); Chloride 108 mmol/L (98-107); Glucose 89 mg/dL (74-106); Potassium 4.2 mmol/L (3.5-5.1); Sodium 142 mmol/L (136-145)
[2020-10-01 19:18] VITALS: BP 127/91; PULSE 70; RESP 18; TEMP 36.4; O2SAT 97
[2020-10-01] MEDS: Ketorolac 30 MG/ML VIAL IVP (19:44)
--- NOTE | 2020-10-01 19:48 | NUR.NOTE ---
Patient encouraged to provide urine specimen. States he is unable to void. Water and urinal provided. Call light in reach. Verbalizes understanding.Nursing Note:
[2020-10-01 20:31] LABS: Bilirubin Small (Negative); Blood Negative (Negative); Clarity Clear (Clear); Glucose Negative (Negative); Ketones Trace mg/dL (Negative); Leukocyte Esterase Negative (Negative); Nitrite Negative (Negative); Specific Gravity >= 1.030 (1.005-1.025); Urobilinogen 0.2 EU/dL (Up TO 0.2)
--- NOTE | 2020-10-01 20:45 | ED.GENADUL_ITS ---
Discharge Plan Disposition Patient Disposition: HOME Condition: Improving Discharge Details Clinical Impression: Low back pain Primary Care Provider: Shay Orellana ED Provider: Xuan Lawton Home Meds and New Rx's Prescriptions: Continued omeprazole 40 mg capsule,delayed release(DR/EC) 40 mg PO DAILY Qty: 30 RF: 0 ibuprofen 800 mg tablet 800 mg PO Q8H PRN (Reason: pain) Qty: 20 RF: 0 Discontinued tamsulosin [Flomax] 0.4 mg capsule 0.4 mg PO DAILY RF: 0 Discharge Instructions Instructions: Low Back Strain (ED) Additional Instructions: continue ibuprofen and or acetaminophen as directed for pain you can use ice or heat for comfort. you can keep urology appointment but it is not likely your renal calculi are causing your symptoms. there is no urinary infection. you have no blood in your urine. your CT scan was reviewed and there are no stones blocking your kidneys or in your ureters or bladder. Referrals: Shay Orellana [Primary Care Provider] - Discharge Data Discharge Date/Time-TO BE ENTERED AT DEPARTURE: 10/01/20 21:09 Medical Decision Making patient presents for bilateral flank pain he states got worse after working today. is waiting for urology appointment for bilateral renal calculi, non obstructing. he has had no fevers or urinary symtpoms of dysuria frequency, retention or incontinence. no visible hematuria. his CT scan is reviewed. His pain does not seem consistent with renal colic. its dull constant and worsened after working today. I will check kidney function and ua to assess for hematuria, infection or kidney injury. do not feel re-imaging if labs unremarkable would be helpful at this point. I reviewed his ct results with Dr Mcfarland who agrees the renal calculi found on ct are unlikely cause of his pain, which does seem more musculoskeletal on exam today. He was advised to keep urology appointment and to see pcp sooner for new or worsening symptoms Medical Records Medical records reviewed: Yes I reviewed the patient's medical records. Imaging Data Radiologic Study: Imaging: CT Scan (CT renal w/o) Radiologist's impression: Exam(s) a CT:CT renal colic wo Exam(s) CT RENAL COLIC WO EXAM: CT RENAL COLIC WO INDICATION: Left Flank pain, R/O Kidney stone. COMPARISON: CT CT CHEST PE CTA from 06/04/2020 TECHNIQUE: CT examination was performed without contrast administration. FINDINGS: Images obtained through the lung bases are unremarkable. Visualized portions of the liver and spleen appear intact except for possible mild hepatic steatosis. Visualized portions of the pancreas are unremarkable. Gallbladder has been surgically removed. Bile ducts are CT normal. Abdominal aorta is of normal diameter. No significant abdominal wall hernia. No significant abdominal or pelvic adenopathy. Adrenals appear normal bilaterally. There are bilateral nonobstructing renal calculi. The largest is in the midpole of the left kidney measures 4 millimeters in greatest diameter. There is no evidence of hydronephrosis or ureterolithiasis. Urinary bladder is unremarkable in appearance. IMPRESSION: Bilateral nonobstructing renal calculi. No evidence of acute process. Lab Data Lab results reviewed: Yes I reviewed the patient's lab results. Labs: Laboratory Tests Range/Units 10/01/20 10/01/20 10/01/20 17:55 17:55 20:07 WBC (4.4-10.8) 10^3/uL 12.39 H RBC (4.36-5.78) 10^6/uL 6.19 H Hgb (13.5-17.5) g/dL 19.0 H Hct (40.0-50.0) % 54.5 H MCV (80-95) fL 88.0 MCH (27.0-33.0) pg 30.7 MCHC (32.0-36.0) % 34.9 RDW (11.8-14.1) % 13.0 Plt Count (130-400) 10^3/uL 282 MPV (8.0-11.0) fL 10.1 Immature Gran % 0.4 Neutrophils % 60.4 Lymphocytes % 30.5 Monocytes % 6.1 Eosinophils % 1.8 Basophils % 0.8 Nucleated RBC % % 0 Absolute Neutrophils (1.2-6.7) 10^3/uL 7.48 H Absolute Lymphocytes (1.2-3.4) 10^3/uL 3.78 H Absolute Monocytes (0.1-0.8) 10^3/uL 0.76 Absolute Eosinophils (0.0-0.7) 10^3/uL 0.22 Absolute Basophils (0.0-0.2) 10^3/uL 0.10 Sodium (136-145) mmol/L 142 Potassium (3.5-5.1) mmol/L 4.2 Chloride (98-107) mmol/L 108 H Carbon Dioxide (21.0-32.0) mmol/L 25.9 Anion Gap (3-11) mmol/L 8.1 BUN (7-18) mg/dL 18 Creatinine (0.70-1.30) mg/dL 1.2 Estimated GFR/1.73 m2 (mL/min/1.73m2) >= 60.00 Glucose (74-106) mg/dL 89 Calcium (8.5-10.1) mg/dL 10.0 Urine Color (Yellow) Yellow Urine Clarity (Clear) Clear Urine pH (5-8) 5.0 Ur Specific [place] (1.005-1.025) >= 1.030 H Urine Protein (Negative) mg/dL Negative Urine Ketones (Negative) mg/dL Trace H Urine Blood (Negative) Negative Urine Nitrite (Negative) Negative Urine Bilirubin (Negative) Small H Urine Urobilinogen (Up TO 0.2) EU/dL 0.2 Ur Leukocyte Esterase (Negative) Negative Urine Glucose (Negative) mg/dL Negative HPI General Date/Time Provider Initiated Documentation: 10/01/20 17:27 . Limitations to Documentation: no limitations . Information obtained by: patient . HPI Narrative: patient presents for c/o bilateral flank pain he states the worsened after working today. he denies any heavy lifting twisting or trauma. he has no fevers or urinary c/o. he states his pain is related to kidney stones and he can't get into urology for 3 months, his pcp has called 2 clinics with no sooner appointments. Related Data Home Medications Medication Instructions Recorded Confirmed omeprazole 40 mg PO DAILY #30 cap 08/30/19 10/01/20 ibuprofen 800 mg PO Q8H PRN #20 tab 09/21/20 10/01/20 Previous Rx's Medication Instructions Recorded omeprazole 40 mg PO DAILY #30 cap 08/30/19 ibuprofen 800 mg PO Q8H PRN #20 tab 09/21/20 Allergies Allergy/AdvReac Type Severity Reaction Status Date / Time blueberry [Blueberry] Allergy Unknown Unverified 10/01/20 17:10 Penicillins Allergy as chld Unverified 10/01/20 17:10 General Stated Complaint: FlankPain YASMEEN: 3 Review of Systems All systems reviewed & are unremarkable except as noted in HPI and below Constitutional Constitutional: Denies fever(s) Cardiovascular Cardiovascular: Denies dyspnea Respiratory Respiratory: Denies cough and Denies dyspnea Gastrointestinal Gastrointestinal: Denies abdominal pain, Denies nausea and Denies vomiting Genitourinary Genitourinary: Denies difficulty urinating, Denies dysuria and Denies urinary urgency Musculoskeletal Musculoskeletal: Reports back pain (bilateral flank area) Hematologic/Lymphatic Hematologic/Lymphatic: Denies easy bruising [facility] Medical History (Updated 10/01/20 @ 21:01 by Xuan Lawton NP) Asthma Kidney stones Seizure disorder Surgical History S/P arthroscopic knee surgery S/P cholecystectomy Social History Smoking/Tobacco Use Status: Current every day Tobacco Type: cigarettes Smoking risk assessment performed?: Yes Alcohol Intake: former Drug use: Never Substance use type: does not use Do you feel safe at home: Yes Do you feel safe in your relationship?: Yes Exam Const General: cooperative, healthy appearing, comfortable and no acute distress Nutritional Appearance: average body habitus Orientation: alert and oriented x3 Cardio Rate: regular rate Rhythm: regular rhythm GI Inspection: normal to inspection Palpation: soft Auscultation: normal bowel sounds Back/Spine/Pelvis Back: CVA tenderness (bilateral ) Skin General skin exam: no rashes or lesions noted Neuro General: patient alert, patient awake and patient oriented x3 Cognition: normal cognition Speech: speech normal Course Vital Signs Vital signs: Vital Signs Temperature 36.6 C 10/01/20 17:05 Pulse 99 H 10/01/20 17:05 Respiratory Rate 16 10/01/20 17:05 Blood Pressure 130/85 10/01/20 17:05 Pulse Oximetry 93 10/01/20 17:05 Temperature 36.4 C L 10/01/20 19:18 Temperature Source Temporal Artery Scan 10/01/20 19:18 Pulse 70 10/01/20 19:18 Respiratory Rate 18 10/01/20 19:18 Respiratory Effort Non-Labored 10/01/20 17:05 Blood Pressure 127/91 H 10/01/20 19:18 Blood Pressure Position Sitting 10/01/20 17:05 Pulse Oximetry 97 10/01/20 19:18 Oxygen Delivery Method Room Air 10/01/20 19:18 Oxygen Flow Rate 0 10/01/20 19:18 Pain Level 5 10/01/20 20:26 Lab/Test Results Lab/Test Results: Laboratory Tests Range/Units 10/01/20 10/01/20 10/01/20 17:55 17:55 20:07 WBC (4.4-10.8) 10^3/uL 12.39 H RBC (4.36-5.78) 10^6/uL 6.19 H Hgb (13.5-17.5) g/dL 19.0 H Hct (40.0-50.0) % 54.5 H MCV (80-95) fL 88.0 MCH (27.0-33.0) pg 30.7 MCHC (32.0-36.0) % 34.9 RDW (11.8-14.1) % 13.0 Plt Count (130-400) 10^3/uL 282 MPV (8.0-11.0) fL 10.1 Immature Gran % 0.4 Neutrophils % 60.4 Lymphocytes % 30.5 Monocytes % 6.1 Eosinophils % 1.8 Basophils % 0.8 Nucleated RBC % % 0 Absolute Neutrophils (1.2-6.7) 10^3/uL 7.48 H Absolute Lymphocytes (1.2-3.4) 10^3/uL 3.78 H Absolute Monocytes (0.1-0.8) 10^3/uL 0.76 Absolute Eosinophils (0.0-0.7) 10^3/uL 0.22 Absolute Basophils (0.0-0.2) 10^3/uL 0.10 Sodium (136-145) mmol/L 142 Potassium (3.5-5.1) mmol/L 4.2 Chloride (98-107) mmol/L 108 H Carbon Dioxide (21.0-32.0) mmol/L 25.9 Anion Gap (3-11) mmol/L 8.1 BUN (7-18) mg/dL 18 Creatinine (0.70-1.30) mg/dL 1.2 Estimated GFR/1.73 m2 (mL/min/1.73m2) >= 60.00 Glucose (74-106) mg/dL 89 Calcium (8.5-10.1) mg/dL 10.0 Urine Color (Yellow) Yellow Urine Clarity (Clear) Clear Urine pH (5-8) 5.0 Ur Specific [place] (1.005-1.025) >= 1.030 H Urine Protein (Negative) mg/dL Negative Urine Ketones (Negative) mg/dL Trace H Urine Blood (Negative) Negative Urine Nitrite (Negative) Negative Urine Bilirubin (Negative) Small H Urine Urobilinogen (Up TO 0.2) EU/dL 0.2 Ur Leukocyte Esterase (Negative) Negative Urine Glucose (Negative) mg/dL Negative
[2020-10-01 21:08] VITALS: BP 145/96; PULSE 56; RESP 18; TEMP 36.4; O2SAT 98
== END 2020-10-01 21:09 | disposition home or self-care (01) ==
PROVIDERS: Emergency Provider Nurse Practitioner Acute Care; PCP Physician Assistant
DX: M54.5 Low back pain (principal); Z87.442 Personal history of urinary calculi
CPT/HCPCS: 36415; 80048; 96374; 99284; 81003; 85025; 99283; J1885

== ENCOUNTER 2020-10-09 16:18 | Outpatient (REF) | payer OTHER, SELFPAY ==
[2020-10-09 19:52] LABS: Abs Immature Grans 0.04 10^3/uL (0.0-0.06); Absolute Eosinophil Count 0.28 10^3/uL (0.0-0.7); Absolute Monocyte Count 0.67 10^3/uL (0.1-0.8); Basophils % 0.7; Eosinophils % 2.3; HCT 53.2 % (40.0-50.0); HGB 18.5 g/dL (13.5-17.5); Immature Grans % 0.3; Lymphocytes % 33.1; MCH 30.3 pg (27.0-33.0); MCHC 34.8 % (32.0-36.0); MCV 87.1 fL (80-95); MPV 10.9 fL (8.0-11.0); Monocytes % 5.5; Neutrophils % 58.1; Nucleated RBC 0 %; Platelet Count 286 10^3/uL (130-400); RBC 6.11 10^6/uL (4.36-5.78); RDW-SD 41.2 fL; Reticulocyte 1.6 % (0.5-2.4)
[2020-10-09 19:54] LABS: Absolute Basophil Count 0.08 10^3/uL (0.0-0.2); Absolute Lymphocyte Count 4.01 10^3/uL (1.2-3.4); Absolute Neutrophil Count 7.03 10^3/uL (1.2-6.7)
[2020-10-14 18:05] LABS: JAK2 Result see interpretation
== END 2020-10-09 16:19 | disposition home or self-care (01) ==
LOC: NCHCN 16:18
PROVIDERS: PCP Physician Assistant; Visit Provider Physician Assistant
DX: D75.1 Secondary polycythemia (principal)
CPT/HCPCS: 81270; 85025; 85045

== ENCOUNTER 2020-11-09 15:03 | Emergency (ER) | payer OTHER, SELFPAY ==
[2020-11-09] VITALS (19 sets, daily range): BP systolic 108–145; BP diastolic 54–84; PULSE 56–84; RESP 16–29; TEMP 36.5; O2SAT 94–96
--- NOTE | 2020-11-09 15:00 | RT.EKG_ITS ---
APPROVED REPORT Exam: Resting ECG Reason for Exam: Chest PAin Patient Location: E HR:82 bpm ECG Measurements Heart Rate 82 AXIS [place] 133 P 48 QRSd 88 QRS 17 QT 359 T 16 QTc 418 Conclusion Sinus rhythm...normal P axis, V-rate 60- 99 Probable left atrial enlargement...P >50mS, <-0.10mV V1 Sinus. No STEMI. I have reviewed and interpreted ECG and agree with software generated interpretation.
--- NOTE | 2020-11-09 15:10 | W.ED.GENAD ---
Discharge Plan Disposition Patient Disposition: HOME Condition: Stable Discharge Details Clinical Impression: Chest wall pain Primary Care Provider: Shay Orellana ED Provider: Aleja Mckeon Home Meds and New Rx's Prescriptions: New sucralfate [Carafate] 1 gram tablet 1 gm PO QACHS Qty: 14 RF: 0 Continued omeprazole 40 mg capsule,delayed release(DR/EC) 40 mg PO DAILY Qty: 30 RF: 0 ibuprofen 800 mg tablet 800 mg PO Q8H PRN (Reason: pain) Qty: 20 RF: 0 Discharge Instructions Instructions: Chest Pain (ED), GERD (Gastroesophageal Reflux Disease) (ED), Chest Wall Pain (ED) Additional Instructions: Your lab work, EKGs, and chest x-ray were reassuring and were negative for acute findings today. Drink plenty of fluids and get plenty of rest. Alternate tylenol and motrin as needed and directed for pain. A prescription for Carafate which is a medication which coats and protect your stomach has been sent electronically to your pharmacy. An outpatient stress test has been ordered for you. Please call the radiology department to confirm scheduling this test. Follow-up with your primary care doctor in 1 week. Return to the emergency department with any worsening or new concerning symptoms. Stand Alone Forms: Work Release Discharge Data Discharge Date/Time-TO BE ENTERED AT DEPARTURE: 11/09/20 20:03 Discharge Physician: Aleja Mckeon Medical Decision Making 35-year-old male with a history of anxiety and GERD presents for sharp substernal chest pain with left arm pain and tingling that occurred just prior to arrival. Patient states pain is now improved. Blood pressure hypertensive. EKG unremarkable. Oxygen saturation 94% on room air, may be secondary to patient being a smoker. . Patient has reproducible anterior chest wall pain. His lungs are clear. He has no focal deficits. Differential includes chest wall pain, GERD, anxiety, ACS. History and presentation does not appear consistent with PE or dissection. Will obtain screening labs, chest x-ray, give a dose of Pepcid, Carafate and Toradol and reassess. Labs and imaging reviewed and unremarkable for acute findings. Hemoglobin 19.5, patient has been similarly elevated in the past 9 years, suspect this may be secondary to his smoking history/dehydration/hemoconcentration. D-dimer negative. Troponin negative. Lipase negative. Chest x-ray negative. Repeat troponin negative. Repeat EKG notes sinus bradycardia but otherwise unchanged. Review of previous records note that patient has had a heart rate in the 50s going back to 2013. Patient reassessed and he feels good to go home. Discussed that as he has reproducible chest wall pain and pain that occurred after eating a fatty meal, suspect either musculoskeletal or GI etiology. Heart score is 1. Low risk. Discussed that his work-up is reassuring and will plan for discharge to home with follow-up with his PCP. An outpatient cardiac stress test ordered. A prescription for Carafate sent electronically to his pharmacy. Usual and customary return precautions given prior to discharge. Medical Records Medical records reviewed: Yes I reviewed the patient's medical records. Imaging Data Radiologic Study: Radiologist's impression: XR CHEST 2V PA LATERAL CLINICAL HISTORY: chest pain, L arm pain, r/o acute disease. TECHNIQUE: 2D digital imaging was performed. COMPARISON: CR RIGHT RIBS TO INCLUDE CXR from 04/11/2011 FINDINGS: Heart size is normal. The mediastinum is not widened. Lungs are clear. No infiltrates nor pleural effusions. IMPRESSION: No acute pulmonary findings. Lab Data Lab results reviewed: Yes I reviewed the patient's lab results. Labs: Laboratory Tests Range/Units 11/09/20 11/09/20 11/09/20 15:20 15:20 15:20 WBC (4.4-10.8) 10^3/uL 11.19 H RBC (4.36-5.78) 10^6/uL 6.33 H Hgb (13.5-17.5) g/dL 19.5 H* Hct (40.0-50.0) % 55.7 H MCV (80-95) fL 88.0 MCH (27.0-33.0) pg 30.8 MCHC (32.0-36.0) % 35.0 RDW (11.8-14.1) % 13.1 Plt Count (130-400) 10^3/uL 283 MPV (8.0-11.0) fL 10.4 Immature Gran % 0.5 Neutrophils % 58.7 Lymphocytes % 32.3 Monocytes % 5.6 Eosinophils % 2.2 Basophils % 0.7 Nucleated RBC % % 0 Absolute Neutrophils (1.2-6.7) 10^3/uL 6.57 Absolute Lymphocytes (1.2-3.4) 10^3/uL 3.61 H Absolute Monocytes (0.1-0.8) 10^3/uL 0.63 Absolute Eosinophils (0.0-0.7) 10^3/uL 0.25 Absolute Basophils (0.0-0.2) 10^3/uL 0.08 D-Dimer (<500) ng/mlFEU Sodium (136-145) mmol/L 141 Potassium (3.5-5.1) mmol/L 3.7 Chloride (98-107) mmol/L 105 Carbon Dioxide (21.0-32.0) mmol/L 26.5 Anion Gap (3-11) mmol/L 9.5 BUN (7-18) mg/dL 15 Creatinine (0.70-1.30) mg/dL 1.1 Estimated GFR/1.73 m2 (mL/min/1.73m2) >= 60.00 Glucose (74-106) mg/dL 139 H Calcium (8.5-10.1) mg/dL 9.0 Magnesium (1.8-2.4) mg/dL 2.2 Total Bilirubin (0.2-1.0) mg/dL 0.4 AST (15-37) U/L 41 H ALT (16-63) U/L 129 H Alkaline Phosphatase (46-116) U/L 92 Troponin I (<0.06) ng/mL < 0.05 Total Protein (6.4-8.2) g/dL 7.5 Albumin (3.4-5.0) g/dL 3.9 Lipase (73-393) U/L COVID-19 Source Range/Units 11/09/20 11/09/20 11/09/20 15:20 15:20 18:22 WBC (4.4-10.8) 10^3/uL RBC (4.36-5.78) 10^6/uL Hgb (13.5-17.5) g/dL Hct (40.0-50.0) % MCV (80-95) fL MCH (27.0-33.0) pg MCHC (32.0-36.0) % RDW (11.8-14.1) % Plt Count (130-400) 10^3/uL MPV (8.0-11.0) fL Immature Gran % Neutrophils % Lymphocytes % Monocytes % Eosinophils % Basophils % Nucleated RBC % % Absolute Neutrophils (1.2-6.7) 10^3/uL Absolute Lymphocytes (1.2-3.4) 10^3/uL Absolute Monocytes (0.1-0.8) 10^3/uL Absolute Eosinophils (0.0-0.7) 10^3/uL Absolute Basophils (0.0-0.2) 10^3/uL D-Dimer (<500) ng/mlFEU 184 Sodium (136-145) mmol/L Potassium (3.5-5.1) mmol/L Chloride (98-107) mmol/L Carbon Dioxide (21.0-32.0) mmol/L Anion Gap (3-11) mmol/L BUN (7-18) mg/dL Creatinine (0.70-1.30) mg/dL Estimated GFR/1.73 m2 (mL/min/1.73m2) Glucose (74-106) mg/dL Calcium (8.5-10.1) mg/dL Magnesium (1.8-2.4) mg/dL Total Bilirubin (0.2-1.0) mg/dL AST (15-37) U/L ALT (16-63) U/L Alkaline Phosphatase (46-116) U/L Troponin I (<0.06) ng/mL < 0.05 Total Protein (6.4-8.2) g/dL Albumin (3.4-5.0) g/dL Lipase (73-393) U/L 217 COVID-19 Source Range/Units 11/09/20 19:45 WBC (4.4-10.8) 10^3/uL RBC (4.36-5.78) 10^6/uL Hgb (13.5-17.5) g/dL Hct (40.0-50.0) % MCV (80-95) fL MCH (27.0-33.0) pg MCHC (32.0-36.0) % RDW (11.8-14.1) % Plt Count (130-400) 10^3/uL MPV (8.0-11.0) fL Immature Gran % Neutrophils % Lymphocytes % Monocytes % Eosinophils % Basophils % Nucleated RBC % % Absolute Neutrophils (1.2-6.7) 10^3/uL Absolute Lymphocytes (1.2-3.4) 10^3/uL Absolute Monocytes (0.1-0.8) 10^3/uL Absolute Eosinophils (0.0-0.7) 10^3/uL Absolute Basophils (0.0-0.2) 10^3/uL D-Dimer (<500) ng/mlFEU Sodium (136-145) mmol/L Potassium (3.5-5.1) mmol/L Chloride (98-107) mmol/L Carbon Dioxide (21.0-32.0) mmol/L Anion Gap (3-11) mmol/L BUN (7-18) mg/dL Creatinine (0.70-1.30) mg/dL Estimated GFR/1.73 m2 (mL/min/1.73m2) Glucose (74-106) mg/dL Calcium (8.5-10.1) mg/dL Magnesium (1.8-2.4) mg/dL Total Bilirubin (0.2-1.0) mg/dL AST (15-37) U/L ALT (16-63) U/L Alkaline Phosphatase (46-116) U/L Troponin I (<0.06) ng/mL Total Protein (6.4-8.2) g/dL Albumin (3.4-5.0) g/dL Lipase (73-393) U/L COVID-19 Source Nasal/Nares ECG Data Attestation: I personally reviewed and interpreted this ECG (s) as follows: Interpretation: #1 -- rate of 82, sinus, no acute ST elevation or depression. MT 133. QTc 418. QRS 88. #2 -- rate of 58, sinus, no acute ST elevation or depression. MT 142. QTc 401. QRS 93. HPI General Mode of arrival: ambulatory. Date/Time Provider Initiated Documentation: 11/09/20 15:09. Limitations to Documentation: no limitations. Information obtained by: patient. HPI Narrative: Patient is a 35-year-old male with a history of anxiety and GERD who presents with substernal sharp chest pain that started 1 hour prior to arrival while he was walking outside to smoke a cigarette. He states the pain started substernal, sharp, 8/10 in onset with radiation pain down his left arm associated with tingling. He states the pain started to subside within several minutes and is now 4/10. He was given 324 mg aspirin in route per EMS. He denies any aggravating or alleviating factors. He states the pain started 20 minutes after eating 2 sausage mcmuffins. He states he eats these every day. He states he had a similar episode occurring 2 days ago while laying in bed. He states this episode lasted for 1 hour and then resolved. He denies any similar episodes of pain in the past. He states his GERD is usually associated with substernal burning which radiates to his throat. He denies any recent fever, cough, shortness of breath, nausea, vomiting, dizziness or injury. Related Data Home Medications Medication Instructions Recorded Confirmed omeprazole 40 mg PO DAILY #30 cap 08/30/19 10/01/20 ibuprofen 800 mg PO Q8H PRN #20 tab 09/21/20 10/01/20 sucralfate [Carafate] 1 gm PO QACHS #14 tab 11/09/20 Previous Rx's Medication Instructions Recorded omeprazole 40 mg PO DAILY #30 cap 08/30/19 ibuprofen 800 mg PO Q8H PRN #20 tab 09/21/20 sucralfate [Carafate] 1 gm PO QACHS #14 tab 11/09/20 Allergies Allergy/AdvReac Type Severity Reaction Status Date / Time blueberry [Blueberry] Allergy Unknown Unverified 10/01/20 17:10 Penicillins Allergy as chld Unverified 10/01/20 17:10 General YASMEEN: 3 Review of Systems All systems reviewed & are unremarkable except as noted in HPI and below Constitutional Constitutional: Reports as per HPI, Denies chills and Denies fever(s) Eyes Eyes: Denies blurry vision ENT Ears, Nose, Mouth, and Throat: Denies dizziness, Denies sore throat and Denies throat swelling Cardiovascular Cardiovascular: Reports chest pain and Denies dyspnea Respiratory Respiratory: Denies cough and Denies dyspnea Gastrointestinal Gastrointestinal: Denies abdominal pain, Denies diarrhea and Denies vomiting Genitourinary Genitourinary: Denies hematuria and Denies dysuria Musculoskeletal Musculoskeletal: Denies back pain and Denies numbness Integumentary/Breasts Skin/Breast: Denies lesions and Denies rash Neurologic Neurologic: Denies dizziness, Denies localized weakness and Denies numbness Allergic/Immunologic Allergic/Immunologic: Denies throat swelling [facility] Medical History (Updated 11/09/20 @ 19:25 by Aleja Mckeon DO) Asthma Kidney stones Seizure disorder Surgical History S/P arthroscopic knee surgery S/P cholecystectomy Social History Smoking/Tobacco Use Status: Current every day Tobacco Type: cigarettes Smoking risk assessment performed?: Yes Alcohol Intake: former Drug use: Never Substance use type: does not use Do you feel safe at home: Yes Do you feel safe in your relationship?: Yes Exam Const General: cooperative, healthy appearing and no acute distress HENMT Head: normal to inspection Face and sinus: normal facial exam Eyes General: appearance normal, both eyes and all related structures Pupils: PERRL EOM: EOM intact bilaterally Neck Neck: normal visual inspection and No submandibular swelling Lymphatic: no lymphadenopathy noted Chest Chest: normal inspection of the chest and no tenderness Resp Effort & Inspection: normal respiratory effort and able to speak in complete sentences Auscultation: clear to auscultation bilaterally Cardio Rate: regular rate Rhythm: regular rhythm GI Inspection: normal to inspection Palpation: soft, not firm, not rigid and nontender Auscultation: normal bowel sounds Male General Exam: Yes normal external exam Back/Spine/Pelvis Thoracic/Lumbar Spine: thoracic and lumbar spine normal to inspection Pelvis: no pain with anterior-posterior compression Skin General skin exam: no rashes or lesions noted Neuro General: patient alert, patient awake and patient oriented x3 Cognition: normal cognition Speech: speech normal Motor: muscle tone normal throughout Sensory Exam: no sensory deficits noted Extrem General: normal to inspection, full ROM, capillary refill normal, no calf tenderness bilaterally and no edema Psych Appearance: grossly normal Mental Status: mental status grossly normal Speech and Movement: speech and movement normal Affect: normal affect
--- NOTE | 2020-11-09 15:30 | DI.RAD_ITS ---
Exam(s) XR CHEST 2V PA LATERAL EXAM: XR CHEST 2V PA LATERAL CLINICAL HISTORY: chest pain, L arm pain, r/o acute disease. TECHNIQUE: 2D digital imaging was performed. COMPARISON: CR RIGHT RIBS TO INCLUDE CXR from 04/11/2011 FINDINGS: Heart size is normal. The mediastinum is not widened. Lungs are clear. No infiltrates nor pleural effusions. IMPRESSION: No acute pulmonary findings. DATA REPOSITORY: RADIATION DOSE DELIVERED:
[2020-11-09 15:52] LABS: Abs Immature Grans 0.06 10^3/uL (0.0-0.06); Absolute Basophil Count 0.08 10^3/uL (0.0-0.2); Absolute Eosinophil Count 0.25 10^3/uL (0.0-0.7); Absolute Lymphocyte Count 3.61 10^3/uL (1.2-3.4); Absolute Monocyte Count 0.63 10^3/uL (0.1-0.8); Absolute Neutrophil Count 6.57 10^3/uL (1.2-6.7); Basophils % 0.7; Eosinophils % 2.2; HCT 55.7 % (40.0-50.0); Immature Grans % 0.5; Lymphocytes % 32.3; MCH 30.8 pg (27.0-33.0); MPV 10.4 fL (8.0-11.0); Monocytes % 5.6; Neutrophils % 58.7; Nucleated RBC 0 %; Platelet Count 283 10^3/uL (130-400); RBC 6.33 10^6/uL (4.36-5.78); RDW 13.1 % (11.8-14.1); RDW-SD 42.3 fL; WBC 11.19 10^3/uL (4.4-10.8)
[2020-11-09] MEDS: Normal Saline 1,000 ML 1000 ML IV (15:53)
[2020-11-09 15:54] LABS: HGB 19.5 g/dL (13.5-17.5)
[2020-11-09] MEDS: Sucralfate 1 GM TAB PO (15:54)
[2020-11-09] MEDS: Ketorolac 30 MG/ML VIAL IVP (15:54)
[2020-11-09] MEDS: FAMOTIDINE 20 MG/50 ML BAG 200 MG IVPB (15:54)
[2020-11-09 15:58] LABS: Magnesium 2.2 mg/dL (1.8-2.4)
[2020-11-09 15:59] LABS: Lipase 217 U/L (73-393)
[2020-11-09 16:04] LABS: ALT 129 U/L (16-63); AST 41 U/L (15-37); Albumin 3.9 g/dL (3.4-5.0); Alkaline Phosphatase 92 U/L (46-116); Anion Gap 9.5 mmol/L (3-11); BUN 15 mg/dL (7-18); Bilirubin, Total 0.4 mg/dL (0.2-1.0); CO2 26.5 mmol/L (21.0-32.0); CREATININE 1.1 mg/dL (0.70-1.30); Chloride 105 mmol/L (98-107); Glucose 139 mg/dL (74-106); Potassium 3.7 mmol/L (3.5-5.1); Sodium 141 mmol/L (136-145); Total Protein 7.5 g/dL (6.4-8.2)
[2020-11-09 16:06] LABS: Troponin I < 0.05 ng/mL (<0.06)
[2020-11-09 16:18] LABS: D-Dimer 184 ng/mlFEU (<500)
--- NOTE | 2020-11-09 16:46 | DI.VRAD_ITS ---
PROCEDURE INFORMATION: Exam: XR Chest Exam date and time: 11/09/2020 3:34 PM Age: 35 years old Clinical indication: Left-sided; Patient HX: Chest pain, L arm pain TECHNIQUE: Imaging protocol: XR of the chest. Views: 2 views. COMPARISON: CT CHEST PE CTA 06/04/2020 9:34 PM FINDINGS: Lungs: Unremarkable. No consolidation. Pleural spaces: Unremarkable. No pleural effusion. No pneumothorax. Heart/Mediastinum: Unremarkable. No cardiomegaly. Bones/joints: Unremarkable. IMPRESSION: No acute findings. Dictated and Authenticated by: Katharina Godoy MD. Ordering:ONEIL Masterson MD
--- NOTE | 2020-11-09 18:15 | RT.EKG_ITS ---
APPROVED REPORT Exam: Resting ECG Reason for Exam: chest pain Patient Location: E HR:58 bpm ECG Measurements Heart Rate 58 AXIS [place] 142 P 48 QRSd 93 QRS 49 QT 407 T 5 QTc 401 Conclusion Sinus bradycardia...rate< 60. Sinus. No STEMI. I have reviewed and interpreted ECG and agree with software generated interpretation.
[2020-11-09 18:49] LABS: Troponin I < 0.05 ng/mL (<0.06)
[2020-11-09 19:54] LABS: Source Nasal/Nares
[2020-11-09 23:20] LABS: COVID-19 PCR Negative (Negative)
--- NOTE | 2020-11-09 23:36 | NUR.NOTE ---
i faxed care manegement for a follow up for a stress test , karissa ed Nursing Note:
--- NOTE | 2020-11-11 12:15 | NUR.NOTE ---
patient made aware of negative covid test results.
== END 2020-11-09 20:03 | disposition home or self-care (01) ==
PROVIDERS: Emergency Provider Physician Assistant; PCP Physician Assistant
DX: R07.82 Intercostal pain (principal); R20.2 Paresthesia of skin; R00.1 Bradycardia, unspecified; F17.210 Nicotine dependence, cigarettes, uncomplicated; Z20.822 Contact with and (suspected) exposure to COVID-19; Z03.818 Encounter for observation for suspected exposure to other biological agents ruled out
CPT/HCPCS: 36415; 80053; 83690; 87635; 93005; 96361; 96365; 96375; 99285; 71046; 83735; 84484; 85025; 85379; 93010; J1885

== ENCOUNTER 2020-11-16 16:31 | Outpatient (REF) | payer OTHER, SELFPAY ==
[2020-11-16 20:13] LABS: D-Dimer 158 ng/mlFEU (<500)
== END 2020-11-16 16:32 | disposition home or self-care (01) ==
LOC: NCHCN 16:31
PROVIDERS: PCP Physician Assistant; Visit Provider Physician Assistant
DX: R07.9 Chest pain, unspecified (principal)
CPT/HCPCS: 85379

== ENCOUNTER 2020-11-17 01:29 | Outpatient (CLI) | payer OTHER, SELFPAY ==
--- NOTE | 2020-11-17 15:00 | ETT_ITS ---
APPROVED REPORT Exam: Exercise Treadmill Patient Location: Out-Patient Room/Bed: Stress Nurse: Ange Cardenas RN Ordering Provider:GEORGI HSIEH, Contact Number: [phone] BMI: 30.68 Baseline Rhythm: Sinus Rhythm Indications: Chest Pain Medical History Medical History: Anxiety, GERD, back pain Cardiac Medications: omeprazole Allergies: PCN, blueberries Cardiac Risk Factors: Family Hx, Current Smoker, HLD, Asthma Previous Cardiac Procedures: none Pretest Chest Pain Characteristics: Exertional Chest pain Exercise History: Indeterminate Physical Disabilities: none Lung Sounds: Clear to auscultation Heart Sounds: Regular Stress Test Details Test: Exercise stress testing was performed using a Abdelrahman protocol. Rest Stress HR Resting HR Supine: 71 bpm Max Heart Rate (APMHR): 183 bpm Resting HR Standin bpm Target HR (85% APMHR): 155 bpm Max HR Achieved: 164 bpm % of APMHR: 89 Recovery HR: 98 bpm HR response to stress: Normal HR response to stress BP Resting BP Supine: 132/94 mmHg Resting BP Standin/96 mmHg Max BP: 184/94 mmHg Recovery BP: 134/92 mmHg BP response to stress: Normal blood pressure response to stress. ECG Resting ECG: Sinus Rhythm Ectopy: none Stress ECG: Sinus Tachycardia ST Change: No significant ST segment changes noted Arrhythmia: VPC's Comment: rare PVCs Recovery ECG: Sinus Rhythm Recovery ST Change: No significant ST segment changes noted Recovery Arrhythmia: none Clinical Reason for Termination: Fatigue Stress Symptoms: Chest pain Exercise duration: 6 min13 sec Highest Stage Reached: Stage 3: 3.4 mph at 14% grade. Exercise capacity: 7.35 METs Christopher Treadmill Score: 2.13 Rate Pressure Product: 82400 Stress ECG Conclusion 1. Resting electrocardiogram showed right axis deviation 2. Patient exercised on the Abdelrahman protocol and completed a workload of 7.35 METS 3. Normal heart rate and blood pressure response to exercise 4. Patient achieved 89% of predicted heart rate for age 5. Electrocardiographically the test was negative for myocardial ischemia 6. Chest discomfort was described, not typical for angina 7. Rare PVCs were seen Christopher Treadmill Score is 2.13 which is Moderate risk. Stress Test Summary STAGE Time (mins) Speed (mph) Grade (%) HR BP SYMPTOMS METS Supine 71 132/94 CP 4/10 at rest Standing 83 128/96 1 3 1.7 10 135 146/92 CP 6/10 4.6 2 6 2.5 12 158 184/94 CP 6/10 7 1 min recovery 145 162/92 CP 5/10 3 min recovery 109 160/82 CP 4/10 6 min recovery 98 134/92 CP returned to baseline 4/10 Pt reporting 4/10 CP always. Increases to 6/10 with exercise and returns to baseline CP of 4/10 wit h rest.
== END 2020-11-17 01:49 ==
PROVIDERS: PCP Physician Assistant; Visit Provider Physician Assistant
DX: R07.9 Chest pain, unspecified (principal); Z82.49 Family history of ischemic heart disease and other diseases of the circulatory system; F17.210 Nicotine dependence, cigarettes, uncomplicated; E78.5 Hyperlipidemia, unspecified; J45.909 Unspecified asthma, uncomplicated; R94.39 Abnormal result of other cardiovascular function study
CPT/HCPCS: 93017

== ENCOUNTER 2020-12-13 10:05 | Emergency (ER) | payer OTHER, SELFPAY ==
[2020-12-13 10:09] VITALS: BP 140/88; PULSE 69; RESP 18; TEMP 36.4; O2SAT 100
--- NOTE | 2020-12-13 10:18 | W.ED.GENAD ---
Discharge Plan Disposition Patient Disposition: HOME Condition: Stable Discharge Details Clinical Impression: Lumbar strain Primary Care Provider: Shay Orellana ED Provider: Aleja Mckeon Home Meds and New Rx's Prescriptions: New methocarbamol 500 mg tablet 500 mg PO Q6H PRN (Reason: muscle spasm) Qty: 14 RF: 0 prednisone 20 mg tablet See Rx Instructions .ROUTE .COMPLEX Qty: 18 RF: 0 Continued omeprazole 40 mg capsule,delayed release(DR/EC) 40 mg PO DAILY Qty: 30 RF: 0 ibuprofen 800 mg tablet 800 mg PO Q8H PRN (Reason: pain) Qty: 20 RF: 0 sucralfate [Carafate] 1 gram tablet 1 gm PO QACHS Qty: 14 RF: 0 Discharge Instructions Instructions: Low Back Strain (ED) Additional Instructions: Drink plenty of fluids and get plenty of rest. Alternate tylenol and motrin as needed and directed for pain. Prescriptions for steroids and muscle relaxers have been sent electronically to your pharmacy. Follow-up with your primary care doctor in 1 week. Return to the emergency department with any worsening or new concerning symptoms such as worsening pain, difficulty ambulating, or loss of bowel or bladder function. Stand Alone Forms: Work Release Discharge Data Discharge Physician: Aleja Mckeon Medical Decision Making 35-year-old male presents with midline lower back pain after kneeling and feeling a pop after placing oil in the car last night. No cauda equina symptoms. Patient appears uncomfortable but nontoxic. Vitals within normal limits. He has midline lumbar and bilateral paraspinal lumbar tenderness. Pain is reproducible with movement. No focal deficits. Neurovascularly intact. Suspect most likely muscle strain. Also consider fracture versus disc herniation. Will obtain CT lumbar spine, give a dose of Toradol IM, Valium and prednisone p.o. and reassess. CT reviewed and notes IMPRESSION: 1. Mild straightening of lumbar lordosis, such as can be seen with muscle spasm. 2. No acute osseous findings. 3. Mild right hydroureteronephrosis. Distal ureter is not included on the plane of imaging. If there is concern for distal ureter obstruction, a dedicated abdomen and pelvis CT can be obtained. 4. Small nonobstructing left renal stone. Patient reassessed and pain is only minimally improved. He was given a dose of oxycodone with improvement. He states his pain does not feel consistent with kidney stone and he has been urinating normally without nausea or vomiting. Patient feels comfortable going home. Prescriptions for steroids and muscle exercise electronically to his pharmacy. Advised to follow up with the primary care doctor for re-evaluation. Usual and customary return precautions given prior to discharge. Medical Records Medical records reviewed: Yes I reviewed the patient's medical records. Imaging Data Radiologic Study: Radiologist's impression: CT Lumbar Spine Without Contrast Exam date and time: 12/13/2020 10:50 AM Age: 35 years old Clinical indication: Other: Pawling pop in mid low back, R/O FX disc herniation TECHNIQUE: Imaging protocol: Computed tomography images of the lumbar spine without contrast. Radiation optimization: All CT scans at this facility use at least one of these dose optimization techniques: automated exposure control; mA and/or kV adjustment per patient size (includes targeted exams where dose is matched to clinical indication); or iterative reconstruction. COMPARISON: 1. CT RENAL COLIC WO 09/21/2020 4:37 PM 2. 06/19/2014 CT. FINDINGS: Vertebrae: Mild straightening of lumbar lordosis, such as can be seen with muscle spasm. Vertebral body heights are maintained. No acute fracture or dislocation. Mild degenerative disc disease at L5-S1 with mild grade 1 anterolisthesis of S1 relative to L5. Discs/Spinal canal/Neural foramina: No significant disc protrusion. No severe spinal canal stenosis. No significant neural foraminal narrowing. Sacrum/coccyx: Mild bilateral sacroiliac joint arthrosis with vacuum phenomenon on the left. Stable subcentimeter sacral and left iliac bone islands since 2014. Kidneys and ureters: Mild right hydroureteronephrosis. Distal ureter is not included on the plane of imaging. Non-obstructing left renal stone is noted measuring 4 mm. Soft tissues: Unremarkable. IMPRESSION: 1. Mild straightening of lumbar lordosis, such as can be seen with muscle spasm. 2. No acute osseous findings. 3. Mild right hydroureteronephrosis. Distal ureter is not included on the plane of imaging. If there is concern for distal ureter obstruction, a dedicated abdomen and pelvis CT can be obtained. 4. Small nonobstructing left renal stone. HPI General Mode of arrival: wheelchair. Date/Time Provider Initiated Documentation: 12/13/20 10:12. Limitations to Documentation: no limitations. Information obtained by: patient. HPI Narrative: Patient is a 35-year-old male with history of asthma, kidney stones and chronic tobacco smoker presents with midline lower back pain after putting oil in the car yesterday. Patient states he was kneeling and turned his head to place wheel in a car and fell a pop in his lower back and has had lower back pain since then. Patient states the pain is radiating out from the middle of his back and into his buttocks. He denies any neck pain, weakness or numbness, saddle anesthesia, bowel or bladder incontinence, fever or abdominal pain. He took ibuprofen and used icy hot last night without relief. He has not taken a medication yet this morning. Related Data Home Medications Medication Instructions Recorded Confirmed omeprazole 40 mg PO DAILY #30 cap 08/30/19 12/13/20 ibuprofen 800 mg PO Q8H PRN #20 tab 09/21/20 12/13/20 sucralfate [Carafate] 1 gm PO QACHS #14 tab 11/09/20 12/13/20 methocarbamol 500 mg PO Q6H PRN #14 tab 12/13/20 prednisone See Rx Instructions .ROUTE 12/13/20 .COMPLEX #18 tab Previous Rx's Medication Instructions Recorded omeprazole 40 mg PO DAILY #30 cap 08/30/19 ibuprofen 800 mg PO Q8H PRN #20 tab 09/21/20 sucralfate [Carafate] 1 gm PO QACHS #14 tab 11/09/20 methocarbamol 500 mg PO Q6H PRN #14 tab 12/13/20 prednisone See Rx Instructions .ROUTE 12/13/20 .COMPLEX #18 tab Allergies Allergy/AdvReac Type Severity Reaction Status Date / Time blueberry [Blueberry] Allergy Unknown Unverified 12/13/20 10:12 Penicillins Allergy as chld Unverified 12/13/20 10:12 General Stated Complaint: Nk/Back Pain YASMEEN: 4 Review of Systems All systems reviewed & are unremarkable except as noted in HPI and below Constitutional Constitutional: Reports as per HPI, Denies chills and Denies fever(s) Eyes Eyes: Denies blurry vision ENT Ears, Nose, Mouth, and Throat: Denies dizziness, Denies sore throat and Denies throat swelling Cardiovascular Cardiovascular: Denies chest pain and Denies dyspnea Respiratory Respiratory: Denies cough and Denies dyspnea Gastrointestinal Gastrointestinal: Denies abdominal pain, Denies diarrhea and Denies vomiting Genitourinary Genitourinary: Denies hematuria and Denies dysuria Musculoskeletal Musculoskeletal: Reports back pain and Denies numbness Integumentary/Breasts Skin/Breast: Denies lesions and Denies rash Neurologic Neurologic: Denies dizziness, Denies localized weakness and Denies numbness Allergic/Immunologic Allergic/Immunologic: Denies throat swelling [facility] Medical History (Updated 12/13/20 @ 12:38 by Aleja Mckeon DO) Asthma Kidney stones Seizure disorder Surgical History S/P arthroscopic knee surgery S/P cholecystectomy Social History Smoking/Tobacco Use Status: Current every day Tobacco Type: cigarettes Smoking risk assessment performed?: Yes Alcohol Intake: former Drug use: Never Substance use type: does not use Do you feel safe at home: Yes Do you feel safe in your relationship?: Yes Exam Const General: cooperative, healthy appearing and no acute distress HENMT Head: normal to inspection Face and sinus: normal facial exam Eyes General: appearance normal, both eyes and all related structures Pupils: PERRL EOM: EOM intact bilaterally Neck Neck: normal visual inspection and No submandibular swelling Lymphatic: no lymphadenopathy noted Chest Chest: normal inspection of the chest and no tenderness Resp Effort & Inspection: normal respiratory effort and able to speak in complete sentences Auscultation: clear to auscultation bilaterally Cardio Rate: regular rate Rhythm: regular rhythm GI Inspection: normal to inspection Palpation: soft, not firm, not rigid and nontender Auscultation: normal bowel sounds Back/Spine/Pelvis Thoracic/Lumbar Spine: thoracic and lumbar spine normal to inspection, paraspinal tenderness (b/l lumbar) and lumbar spinal tenderness Skin General skin exam: no rashes or lesions noted Neuro General: patient alert, patient awake and patient oriented x3 Cognition: normal cognition Speech: speech normal Motor: muscle tone normal throughout and strength 5/5 throughout Sensory Exam: no sensory deficits noted DTR's: Rt Patellar: 1+, Lt Patellar: 1+, Rt Ankle: 1+ and Lt Ankle: 1+ Plantar Reflexes: Equivocal: bilateral (negative babinski b/l ) Extrem General: normal to inspection, full ROM, capillary refill normal, no calf tenderness bilaterally and no edema Other: B/L PT/DP pulses intact. Psych Appearance: grossly normal Mental Status: mental status grossly normal Speech and Movement: speech and movement normal Affect: normal affect Course Vital Signs Vital signs: Vital Signs Temperature 97.5 F L 12/13/20 10:09 Pulse 69 12/13/20 10:09 Respiratory Rate 18 12/13/20 10:09 Blood Pressure 140/88 12/13/20 10:09 Pulse Oximetry 100 12/13/20 10:09 Temperature 97.5 F L 12/13/20 10:09 Temperature Source Temporal Artery Scan 12/13/20 10:09 Pulse 69 12/13/20 10:09 Respiratory Rate 18 12/13/20 10:09 Respiratory Effort Non-Labored 12/13/20 10:13 Blood Pressure 140/88 12/13/20 10:09 Blood Pressure Position Sitting 12/13/20 10:09 Pulse Oximetry 100 12/13/20 10:09 Oxygen Delivery Method Room Air 12/13/20 10:09 Oxygen Flow Rate 0 12/13/20 10:09 Pain Level 8 12/13/20 10:09
--- NOTE | 2020-12-13 10:45 | DI.CT_ITS ---
Exam(s) CT LUMBAR SPINE WO EXAM: CT LUMBAR SPINE WO CLINICAL HISTORY: felt pop in mid low back, r/o fx, disc herniation. TECHNIQUE: Imaging Protocol: Axial computed tomography images with coronal and sagittal reformatted images were created and reviewed CONTRAST MATERIAL: Noncontrast COMPARISON: CT CT RENAL COLIC WO from 09/21/[address] RENAL COLIC WO from 09/21/2020 FINDINGS: Bones: The last intervertebral disc space is designated the L5/S1 level for the numbering purpose of this examination. The vertebral body heights are well maintained. No fracture is seen. T12-L1: No disc herniations or bulges are present. L1-2: No disc herniations or bulges are present. L2-3: No disc herniations or bulges are present. L3-4: No disc herniations or bulges are present. L4-5: No disc herniations or bulges are present. L5-S1: Mild disc bulging. No focal disc protrusion.. Stable appearance anterolisthesis at L5-S1. No spondylolysis. Stable bone islands left ilium and S2. Soft Tissues: The paraspinal soft tissues are unremarkable. IMPRESSION: Stable mild disc bulging and mild anterolisthesis at L5-S1. No acute fracture. No visible disc kelvin iation. RADIATION DOSE DELIVERED: 668.56mGy.cm Total DLP DATA REPOSITORY: All CT scans at this facility are submitted to the National Radiology Data Registry (NRDR) Dose Index Registry (DIR) with the [employer] (ACR). RADIATION OPTIMIZATION: All CT scans at this facility use at least one of these dose optimization te chniques: automated exposure control; mA and/or kV adjustment per patient size (includes targeted exa ms where dose is matched to clinical indication); or iterative reconstruction.
[2020-12-13] MEDS: Ketorolac 60 MG/2 ML VIAL IM (11:50)
[2020-12-13] MEDS: diazePAM 5 MG TAB PO (11:50)
[2020-12-13] MEDS: predniSONE 20 MG TAB 60 MG PO (11:51)
[2020-12-13 12:02] VITALS: BP 132/83; PULSE 57; RESP 17; TEMP 36.6; O2SAT 99
--- NOTE | 2020-12-13 12:08 | DI.VRAD_ITS ---
PROCEDURE INFORMATION: Exam: CT Lumbar Spine Without Contrast Exam date and time: 12/13/2020 10:50 AM Age: 35 years old Clinical indication: Other: Mcdade pop in mid low back, R/O FX disc herniation TECHNIQUE: Imaging protocol: Computed tomography images of the lumbar spine without contrast. Radiation optimization: All CT scans at this facility use at least one of these dose optimization techniques: automated exposure control; mA and/or kV adjustment per patient size (includes targeted exams where dose is matched to clinical indication); or iterative reconstruction. COMPARISON: 1. CT RENAL COLIC WO 09/21/2020 4:37 PM 2. 06/19/2014 CT. FINDINGS: Vertebrae: Mild straightening of lumbar lordosis, such as can be seen with muscle spasm. Vertebral body heights are maintained. No acute fracture or dislocation. Mild degenerative disc disease at L5-S1 with mild grade 1 anterolisthesis of S1 relative to L5. Discs/Spinal canal/Neural foramina: No significant disc protrusion. No severe spinal canal stenosis. No significant neural foraminal narrowing. Sacrum/coccyx: Mild bilateral sacroiliac joint arthrosis with vacuum phenomenon on the left. Stable subcentimeter sacral and left iliac bone islands since 2014. Kidneys and ureters: Mild right hydroureteronephrosis. Distal ureter is not included on the plane of imaging. Non-obstructing left renal stone is noted measuring 4 mm. Soft tissues: Unremarkable. IMPRESSION: 1. Mild straightening of lumbar lordosis, such as can be seen with muscle spasm. 2. No acute osseous findings. 3. Mild right hydroureteronephrosis. Distal ureter is not included on the plane of imaging. If there is concern for distal ureter obstruction, a dedicated abdomen and pelvis CT can be obtained. 4. Small nonobstructing left renal stone. Dictated and Authenticated by: Dmitriy Cleary MD. Ordering:ONEIL Masterson MD
[2020-12-13] MEDS: oxyCODONE 5 MG TAB PO (12:49)
== END 2020-12-13 12:54 | disposition home or self-care (01) ==
PROVIDERS: Emergency Provider Physician Assistant; PCP Physician Assistant
DX: S39.012A Strain of muscle, fascia and tendon of lower back, initial encounter (principal); X50.9XXA Other and unspecified overexertion or strenuous movements or postures, initial encounter
CPT/HCPCS: 96372; 99284; 72131; 99285; J1885; J7512

== ENCOUNTER 2021-05-13 00:46 | Emergency (ER) | payer MEDICAID, SELFPAY ==
[2021-05-13 00:49] VITALS: BP 143/99; PULSE 78; RESP 12; TEMP 36.8; O2SAT 98
--- NOTE | 2021-05-13 00:50 | ED.GENADUL_ITS ---
Discharge Plan Disposition Patient Disposition: HOME Condition: Improving Discharge Details Clinical Impression: Foreign body of cornea, left Primary Care Provider: Shay Orellana ED Provider: Alfred Moyer Home Meds and New Rx's Prescriptions: Continued omeprazole 40 mg capsule,delayed release(DR/EC) 40 mg PO DAILY Qty: 30 0RF ibuprofen 800 mg tablet 800 mg PO Q8H PRN (Reason: pain) Qty: 20 0RF Rx Instructions: Take with food methocarbamol 500 mg tablet 500 mg PO Q6H PRN (Reason: muscle spasm) Qty: 14 0RF prednisone 20 mg tablet See Rx Instructions .ROUTE .COMPLEX Qty: 18 0RF Rx Instructions: Take 3 tabs daily for 3 days, then 2 tabs daily for 3 days, then 1 tab daily for 3 days. albuterol sulfate 90 mcg/actuation Hfa Aerosol Inhaler 2 puff INHALATION Q6H PRN0RF sucralfate [Carafate] 1 gram tablet 1 gm PO QACHS Qty: 14 0RF Discharge Instructions Instructions: Corneal Abrasion (ED) Additional Instructions: Tylenol and/or ibuprofen as needed for pain. Apply a cool compress to eye with eye closed for comfort. Sunglasses during the daylight. Apply erythromycin to the left eye 4-5 times per day for the next 5 days. If not improved in 48 hours time, please call the ER at [phone] and asked to speak to the health care administrator for a follow-up/referral to [facility] eye care. Medical Decision Making 35-year-old male presents from workplace after rubbing his eye and feeling metal fragment. No change to vision, he otherwise has been well. On exam he is in no acute distress, there is a small foreign body on the nasal aspect medial to his axis of vision. Lorri sign was negative. Patient was anesthetized and the foreign body was removed. We will place him on erythromycin ointment. I believe he will be improved in 2 days, but will have him follow-up with [facility] eye care if no improvement by day 3. Stable and appropriate for outpatient management. HPI General Mode of arrival: ambulatory . Date/Time Provider Initiated Documentation: 05/13/21 00:46 . Limitations to Documentation: no limitations . Information obtained by: patient . History of Present Illness 35 year old M presents to the emergency department with the chief complaint of L eye 'debris'/discomfort, described as mild and moderate, Quality is described as dull and constant, and is localized to the eyes and left. Patient reports no radiation. Patient started experiencing this hour(s) and it has been constant. Patient notes no other symptoms.. Related Data Home Medications Medication Instructions Recorded Confirmed omeprazole 40 mg capsule,delayed 40 mg PO DAILY #30 cap 08/30/19 05/13/21 release ibuprofen 800 mg tablet 800 mg PO Q8H PRN #20 tab 09/21/20 05/13/21 sucralfate 1 gram tablet (Carafate) 1 gm PO QACHS #14 tab 11/09/20 05/13/21 methocarbamol 500 mg tablet 500 mg PO Q6H PRN #14 tab 12/13/20 prednisone 20 mg tablet See Rx Instructions .ROUTE 12/13/20 .COMPLEX #18 tab albuterol sulfate 90 mcg/actuation 2 puff INHALATION Q6H PRN 05/13/21 05/13/21 aerosol inhaler Previous Rx's Medication Instructions Recorded omeprazole 40 mg capsule,delayed 40 mg PO DAILY #30 cap 08/30/19 release ibuprofen 800 mg tablet 800 mg PO Q8H PRN #20 tab 09/21/20 sucralfate 1 gram tablet (Carafate) 1 gm PO QACHS #14 tab 11/09/20 methocarbamol 500 mg tablet 500 mg PO Q6H PRN #14 tab 12/13/20 prednisone 20 mg tablet See Rx Instructions .ROUTE 12/13/20 .COMPLEX #18 tab Allergies Allergy/AdvReac Type Severity Reaction Status Date / Time blueberry [Blueberry] Allergy Unknown Unverified 05/13/21 00:52 Penicillins Allergy as chld Unverified 05/13/21 00:52 General AYSMEEN: 4 Review of Systems Narrative: recently well, noother complaints PFSH All Active Problems (Updated 05/13/21 @ 01:10 by Alfred Moyer MD) Low back strain (Acute) Shortness of breath (Acute) Kidney stone on left side (Acute) Low back pain (Acute) Chest wall pain (Acute) Lumbar strain (Acute) Foreign body of cornea, left (Acute) S/P cholecystectomy (Chronic) Asthma (Chronic) Social History Smoking/Tobacco Use Status: Current every day Tobacco Type: cigarettes Smoking risk assessment performed?: Yes Alcohol Intake: former Drug use: Never Substance use type: does not use Do you feel safe at home: Yes Do you feel safe in your relationship?: Yes Exam Narrative Exam Narrative: GEN: awake, alert, oriented 3. Pleasant, well groomed, interactive. HEAD: Normocephalic, atraumatic ENT: Mucous membranes moist, oropharynx unremarkable, External ear exam unr emarkable EYES: PERRL, EOMI, left conjunctival injection. Foreign body present left eye nasal aspect medial to the axis of vision His US check describes CHEST/RESP: Visual acuity no respiratory distress EXT: Full ROM, no edema, no rash Neuro: Grossly normal neurologic exam, conversant, interactive. Psych: Speech fluent, thoughts congruent, affect normal
[2021-05-13] MEDS: Balanced Salt Solution 15 ML BTL OP (01:52)
[2021-05-13] MEDS: Erythromycin Ophth Oint 3.5 GM TUBE OP (01:52)
[2021-05-13] MEDS: Fluorescein STRIPS 100/BOX 1 MG (01:53)
[2021-05-13] MEDS: Tetracaine 0.5% 4 ML BTL (01:53)
== END 2021-05-13 01:54 | disposition home or self-care (01) ==
PROVIDERS: Emergency Provider Emergency Medicine; PCP Physician Assistant
DX: T15.02XA Foreign body in cornea, left eye, initial encounter (principal); X58.XXXA Exposure to other specified factors, initial encounter
CPT/HCPCS: 99283

== ENCOUNTER 2021-09-28 10:51 | Emergency (ER) | payer BC, MEDICAID, SELFPAY ==
[2021-09-28 11:04] VITALS: BP 126/73; PULSE 64; RESP 16; TEMP 36.7; O2SAT 98
--- NOTE | 2021-09-28 11:15 | DI.CT_ITS ---
Exam(s) CT ABDOMEN PELVIS WO EXAM: CT ABDOMEN PELVIS WO CLINICAL HISTORY: left flank pain, dysuria, hx of kidney stones. TECHNIQUE: Imaging Protocol: Axial computed tomography images with coronal and sagittal reformatted images were created and reviewed. Oral: / no COMPARISON: CT CT RENAL COLIC WO from 09/21/2020 FINDINGS: ABDOMEN: Lung Bases: Normal where visualized. Liver: Normal density. No measurable mass. Gallbladder and biliary tract: Status post cholecystectomy. No radiodense calculus or dilation. Pancreas: Normal density, no abnormal calcifications or inflammatory process. Spleen: Normal. Kidneys: Normal size, contour and axis. There is a 5 millimeter stone in the mid left ureter causing minimal hydronephrosis. There are 1 or 2 other tiny punctate left renal calculi. No right renal brandon culi are seen . no masses seen. Adrenal glands: No masses seen. Lymph nodes: Within normal limits. Abdominal Aorta: Abdominal portion non-dilated. PELVIS: Bladder: Minimally distended. Gross wall thickening. Mild wall thickening was seen on the prior exa m.. Bowel: Stomach and small bowel show no obstruction or bowel wall thickening. Colon shows mild amount of fecal material. Intramural fat deposition is noted throughout. Appendix is normal. Peritoneal cavity: No ascites, collection or mesenteric inflammatory response. Reproductive organs: Prostate calcifications. Prostate normal in size.. Bones: Within normal limits. IMPRESSION: 5 millimeter stone in the mid left ureter causing mild left hydronephrosis. Additional tiny nonobstr ucting left renal calculus. Thick walled urinary bladder could in part be secondary to under distension. Cystitis not excluded. Results of this exam have been verbally communicated with the emergency department provider. RADIATION DOSE DELIVERED: 1,081.44mGy.cm Total DLP DATA REPOSITORY: All CT scans at this facility are submitted to the National Radiology Data Registry (NRDR) Dose Index Registry (DIR) with the [employer] (ACR). RADIATION OPTIMIZATION: All CT scans at this facility use at least one of these dose optimization te chniques: automated exposure control; mA and/or kV adjustment per patient size (includes targeted exa ms where dose is matched to clinical indication); or iterative reconstruction.
--- NOTE | 2021-09-28 11:30 | ED.GENADUL_ITS ---
Discharge Plan Disposition Patient Disposition: HOME Condition: Improving Discharge Details Clinical Impression: Kidney stone on left side Primary Care Provider: Shay Orellana ED Provider: Ayush Queen Home Meds and New Rx's Prescriptions: New tamsulosin 0.4 mg capsule 0.4 mg PO DAILY 4 Days Qty: 4 0RF Discharge Instructions Instructions: Kidney Stones (ED) Additional Instructions: Please follow-up with urology. Please return to emergency department for any worsening symptoms such as nausea vomiting pain fevers inability urinate or other abnormal symptoms Medical Decision Making 36-year-old male presents with left flank pain and dysuria that began this morning, history of kidney stones and stenting in the past, afebrile nontoxic no nausea no vomiting nonperitoneal no CVA tenderness. High clinical suspicion for kidney stone versus renal colic low suspicion for pyelonephritis or UTI. Screening labs imaging analgesia fluids Evidence of kidney stone with mild hydronephrosis. Patient is resting comfortably no acute distress. No nausea or vomiting. No evidence of UTI. Patient be given follow-up with urology. Flomax for home. Return precautions given HPI General Date/Time Provider Initiated Documentation: 09/28/21 10:53 . HPI Narrative: 36-year-old male history of kidney stones presents with left flank pain and dysuria that began this morning. Denies nausea vomiting fevers or chills. Does have history of ureteral stenting. Related Data Home Medications Medication Instructions Recorded Confirmed tamsulosin 0.4 mg capsule 0.4 mg PO DAILY 4 days #4 caps 09/28/21 Previous Rx's Medication Instructions Recorded tamsulosin 0.4 mg capsule 0.4 mg PO DAILY 4 days #4 caps 09/28/21 Allergies Allergy/AdvReac Type Severity Reaction Status Date / Time blueberry [Blueberry] Allergy Unknown Unverified 09/28/21 11:09 Penicillins Allergy as chld Unverified 09/28/21 11:09 General Stated Complaint: FlankPain YASMEEN: 3 Review of Systems Narrative: Review of Systems Constitutional: negative Eyes: negative ENT: negative Cardiovascular: negative Respiratory: negative Gastrointestinal: negative : Flank pain dysuria Musculoskeletal: negative Skin: negative Neurologic: negative Psych: negative PFSH All Active Problems (Updated 09/28/21 @ 13:43 by Ayush Queen MD) Low back strain (Acute) Shortness of breath (Acute) Kidney stone on left side (Acute) Low back pain (Acute) Chest wall pain (Acute) Lumbar strain (Acute) S/P cholecystectomy (Chronic) Asthma (Chronic) Social History Smoking/Tobacco Use Status: Current every day Tobacco Type: cigarettes Smoking risk assessment performed?: Yes Alcohol Intake: former Drug use: Never Substance use type: does not use Do you feel safe at home: Yes Do you feel safe in your relationship?: Yes Exam Narrative Exam Narrative: Physical Examination General: alert, awake, cooperative, resting comfortably, no acute distress HEENT: normocephalic, atraumatic; PERRL, EOM intact, conjunctiva normal; no nasal discharge; moist mucous membranes, oral and pharyngeal mucosa normal, tolerating secretions Neck: supple, trachea midline; full ROM Chest: normal to inspection Respiratory: normal respiratory effort, speaking in full sentences, clear to auscultation, no wheezing, rales or rhonchi Cardiac: regular rate, regular rhythm, S1S2 intact, no murmurs rubs or gallops GI: abdomen soft, non-tender, non-distended; no palpable mass or hepatosplenomegaly Skin: no lesions, rashes or trauma appreciated Neuro: AAOx3, normal speech, moving all extremities Psych: Appropriate mood and affect Course Vital Signs Vital signs: Vital Signs Temperature 36.7 C 09/28/21 11:04 Pulse 64 09/28/21 11:04 Respiratory Rate 16 09/28/21 11:04 Blood Pressure 126/73 09/28/21 11:04 Pulse Oximetry 98 09/28/21 11:04 Temperature 36.7 C 09/28/21 11:04 Pulse 64 09/28/21 11:04 Respiratory Rate 16 09/28/21 11:04 Respiratory Effort 09/28/21 11:10 Blood Pressure 126/73 09/28/21 11:04 Pulse Oximetry 98 09/28/21 11:04 Pain Level 7 09/28/21 11:10
[2021-09-28] MEDS: Normal Saline 1,000 ML 1000 ML IV (11:48)
[2021-09-28] MEDS: Ketorolac 15 MG/ML VIAL IVP (11:48)
[2021-09-28] MEDS: Tamsulosin 0.4 MG CAPCR PO (11:49)
[2021-09-28 12:03] LABS: Abs Immature Grans 0.04 10^3/uL (0.0-0.06); Absolute Basophil Count 0.05 10^3/uL (0.0-0.2); Absolute Eosinophil Count 0.21 10^3/uL (0.0-0.7); Absolute Lymphocyte Count 2.73 10^3/uL (1.2-3.4); Absolute Monocyte Count 0.65 10^3/uL (0.1-0.8); Basophils % 0.4; Eosinophils % 1.8; HCT 53.2 % (40.0-50.0); HGB 18.1 g/dL (13.5-17.5); Immature Grans % 0.4; Lymphocytes % 23.9; MCH 30.3 pg (27.0-33.0); MCV 89 fL (80-95); MPV 10.7 fL (8.0-11.0); Monocytes % 5.7; Neutrophils % 67.8; Platelet Count 238 10^3/uL (130-400); RBC 5.98 10^6/uL (4.36-5.78); RDW 13.2 % (11.8-14.1); RDW-SD 42.7 fL; WBC 11.41 10^3/uL (4.4-10.8)
[2021-09-28 12:05] LABS: Absolute Neutrophil Count 7.74 10^3/uL (1.2-6.7)
[2021-09-28 12:27] LABS: ALT 86 U/L (16-63); AST 35 U/L (15-37); Albumin 3.8 g/dL (3.4-5.0); Alkaline Phosphatase 73 U/L (46-116); Anion Gap 10.3 mmol/L (3-11); BUN 15 mg/dL (7-18); Bilirubin, Total 0.6 mg/dL (0.2-1.0); CO2 26.7 mmol/L (21.0-32.0); CREATININE 1.2 mg/dL (0.70-1.30); Calcium 8.8 mg/dL (8.5-10.1); Chloride 105 mmol/L (98-107); Glucose 131 mg/dL (74-106); Potassium 3.2 mmol/L (3.5-5.1); Sodium 142 mmol/L (136-145)
[2021-09-28 13:13] LABS: Bilirubin Negative (Negative); Blood Large (Negative); Clarity Clear (Clear); Glucose Negative (Negative); Ketones Negative (Negative); Leukocyte Esterase Negative (Negative); Nitrite Negative (Negative); Specific Gravity 1.025 (1.005-1.025); Urobilinogen 0.2 EU/dL (Up TO 0.2)
[2021-09-28 13:20] LABS: Bacteria Rare HPF (Negative); C & S Indicated? No; Casts 0-2 Hyaline LPF (Negative); Crystals Few Amorphous HPF (Negative); Epithelial Cells Few HPF (Negative); Mucus Moderate (Negative); RBC >50 HPF (0-2); WBC Negative HPF (0-5)
--- NOTE | 2021-09-28 13:49 | NUR.NOTE ---
Nursing Note: Referral faxed to [facility] for 5mm kidney stone with mild hydro; 1 to 2 weeks.
[2021-09-28 14:20] VITALS: BP 118/84; PULSE 57; RESP 16; TEMP 36.4; O2SAT 97
== END 2021-09-28 14:23 | disposition home or self-care (01) ==
PROVIDERS: Emergency Provider Emergency Medicine; PCP Physician Assistant
DX: N13.2 Hydronephrosis with renal and ureteral calculous obstruction (principal); F17.210 Nicotine dependence, cigarettes, uncomplicated
CPT/HCPCS: 36415; 80053; 96361; 96374; 99284; 74176; 81003; 81015; 85025; 99283; J1885

== ENCOUNTER 2021-11-02 12:05 | Outpatient (REF) | payer BC, MEDICAID, SELFPAY ==
[2021-11-02 12:37] LABS: Source Nasal/Nares
[2021-11-02 15:25] LABS: COVID-19 PCR Negative (Negative)
== END 2021-11-02 12:06 | disposition home or self-care (01) ==
LOC: LBN 12:05
PROVIDERS: PCP Physician Assistant; Visit Provider Urology
DX: Z20.822 Contact with and (suspected) exposure to COVID-19 (principal)
CPT/HCPCS: 87635

== ENCOUNTER 2021-11-04 07:12 | Day surgery (SDC) | payer BC, MEDICAID, SELFPAY ==
[2021-11-04] VITALS (9 sets, daily range): BP systolic 97–141; BP diastolic 59–90; PULSE 52–72; RESP 18–25; TEMP 36.2–36.4; O2SAT 92–97; BMI 36.2
--- NOTE | 2021-11-04 04:27 | W.ANESPRE ---
General Info Date of Service Date Performed: 11/04/21 Height: 5 ft 11 in Weight: 117.934 kg Body Mass Index (BMI): 36.2 Surgical Procedure: Operation Date: 11/04/21 08:25 Proposed Procedure Side Surgeon p Cystoscopy/Laser/Retrograde/Ureteroscopy/Stone Manipulation/? Stent Placement Left Rey Mcfarland MD Meds Allergies and Home Medications Allergies Allergy/AdvReac Type Severity Reaction Status Date / Time Penicillins Allergy Mild as chld Unverified 11/04/21 07:49 blueberry [Blueberry] Allergy Unknown vomiting, Unverified 11/04/21 07:49 and difficulty breathing Home Medication Medication Instructions Recorded albuterol sulfate 90 mcg/actuation 2 puff inhalation Q6H PRN 10/28/21 aerosol inhaler tamsulosin 0.4 mg capsule (Flomax) 0.4 mg PO DAILY #20 caps 10/28/21 Current Visit Medications: Current Medications Generic Name Dose Route Start Last Admin Trade Name Freq PRN Reason Stop Dose Admin Ringer's Solution 1,000 mls @ 80 mls/hr 11/04/21 06:00 IV 12/03/21 23:59 INFUSION CARMEN Ciprofloxacin 400 mg in 200 mls @ 200 mls/hr 11/04/21 06:00 Cipro I.V. IVPB 11/04/21 16:00 PREOP CARMEN IV Miscellaneous Supplies 1 each 11/04/21 06:00 Iv Access IV 12/03/21 23:59 DIRECTED CARMEN Sodium Chloride 0 ml 11/04/21 06:00 Normal Saline Flush 10 Ml Syr IV 12/03/21 23:59 PRN PRN Sodium Chloride 0 ml 11/04/21 06:00 Normal Saline 10 Ml Vial IJ 12/03/21 23:59 DIRECTED PRN Sterile Water 0 ml 11/04/21 06:00 Water,Injection,Sterile 10 Ml Vial IJ 12/03/21 23:59 DIRECTED PRN PFSH Active Problems Active Problems: Problem Status Onset Code Asthma J45.909 S/P cholecystectomy Z90.49 Low back strain S39.012A Shortness of breath R06.02 Kidney stone on left side N20.0 Low back pain M54.5 Chest wall pain R07.89 Lumbar strain S39.012A Medical History Medical History (Updated 11/04/21 @ 07:58 by Rey Mcfarland MD) Hx of seizure disorder Per pt. states he was told they were seizure like symptoms related to stress hasn't had an event in 10+ years Surgical History Surgical History (Updated 11/04/21 @ 07:50 by Gail Burnett RN) H/O cystoscopy S/P cystoscopy with ureteral stent placement Tobacco Smoking/Tobacco Use Status: Current every day Tobacco Type: cigarettes Smoking cigarettes per day: 10 Alcohol Alcohol Intake: current Alcohol intake frequency: holidays/special occasions only Substance Use Substance use: Never Substance use type: does not use Vital Signs and Lab Results Vital Signs Most Recent Vital Signs in EMR: Temp Pulse Resp BP Pulse Ox 36.3 C L 72 18 141/90 H 97 11/04/21 07:30 11/04/21 07:30 11/04/21 07:30 11/04/21 07:30 11/04/21 07:30 Lab Results Blood Type / Crossmatch: No Data to Display Complete Blood Count: No Data to Display Complete Metabolic Panel: No Data to Display Liver Function Panel: No Data to Display Coagulation Panel: No Data to Display Cardiac Panel: No Data to Display Arterial Blood Gas: No Data to Display Venous Blood Gas: No Data to Display Pancreas Panel: No Data to Display Thyroid Panel: No Data to Display Infectious Disease: Coronavirus (COVID-19)(PCR) Negative (Negative) 11/02/21 09:45 Coronavirus 2019 Source Nasal/Nares 11/02/21 09:45 Blood Cultures: No Data to Display Toxicology Panel: No Data to Display Imaging and Studies Imaging and Studies Study information below may be from another EMR and interpreted by another provider. Please see original notes in EMR for more complete details. EKG Summary: 10/2020: sinus. Stress Test Summary: 10/2020: 7.35 METS, 89% predicted HR, EKG negative for ischemia, chest pain no typical for agina Anesthesia Assessment and Plan Anesthesia History Personal History: No History of Anesthesia Complications Family History: No Family History of Anesthesia Complications Exercise Tolerance Exercise Tolerance: Metabolic Equivalents>4 Cardiac & Pulmonary Exam Cardiac Exam: Normal S1/S2 Heart Sounds Pulmonary Exam: Clear Bilateral Breath Sounds Implantable Cardiac Device Does patient have a Pacemaker or an ICD?: No Airway Exam Known Difficult Airway: No Mallampati Class: 1 Mouth Opening: Normal (> 3cm) Thyromental Distance: Greater than 3 cm Neck Range of Motion: Full ROM Neck Circumference: Normal Teeth Condition: Generalized Poor Dentition and Loose or Chipped ASA Classification ASA Score: ASA 2 Emergency Case?: No NPO Status NPO Status: NPO Clears >2 hours, Solids >8 hours Anesthesia Plan Resuscitation Status: Full Code Anesthesia Technique: General Anesthesia Airway Planned: LMA Monitors Used: Standard Monitors Preoperative Comments:: 36 yo male for kidney stone. SigPMHx: anxiety, asthma (albuterol), seizure (10 yrs agao, r/t stress), chest pain (negative stress), current smoker, occ EtOH, Extremlely loose front teeth, multiple. discussed risk of loose teeth and one going into lungs.
--- NOTE | 2021-11-04 07:53 | W.PM.HP.N ---
Date of service: 11/04/21 Time of Service: 07:53 Assessment and Plan Assessment and plan (1) Left ureteral stone: Status: Acute Assessment and plan: We have planned for a cystoscopy and left retrograde pyelogram to see if the stone has migrated distally at all. We would then choose the ureteroscope and hopefully be able to access the stone. As long as we can access his stone, we can treat it with the holmium laser lithotripsy or basket extraction. If we are unable to access the stone, we will place a ureteral stent and come back for a staged procedure. We discussed potential complications including infection, bleeding and ureteral strictures. History of Present Illness History of Present Illness Chief Complaint: Left ureteral stone Narrative: Ajith is a 36-year-old male referred to urology by the emergency room for any left ureteral stone. Patient reports that pain is still present in approximately the same location as at the time of presentation.?? He does not feel as if he passed a stone.? He is not having gross hematuria, dysuria, fevers, chills, nausea, vomiting, frequency, urgency or inability to void.? Patient reports he has an extensive history of kidney stones managed here initially and then at [facility] [place].? His last known was 7 years ago.? He states they are typically on his right side.? He describes scar tissue at the right UPJ that might require treatment if another right sided stone needs to be dealt with. He has never been able to pass a stone on his own.? He feels that his stone burden has decreased over the 7 years because he stopped drinking soda. He states his past history of stones has been calcium based.? He has no history of gout or parathyroid disease. Review of Systems Narrative: No fevers or chills No vision change or dysphasia No diabetes or thyroid dysfunction Hx asthma. No sputum production or hemoptysis No chest pain or palpitations No nausea, vomiting, hepatitis, ulcers, jaundice Hx seizures - last over 10 years ago. No strokes or peripheral neuropathy No bleeding disorders or anemia No gout PFSH All Active Problems (Updated 11/04/21 @ 07:58 by Rey Mcfarland MD) Left ureteral stone (Acute) Asthma (Chronic) S/P cholecystectomy (Chronic) Low back strain (Acute) Shortness of breath (Acute) Kidney stone on left side (Acute) Low back pain (Acute) Chest wall pain (Acute) Lumbar strain (Acute) Medical History (Updated 11/04/21 @ 07:58 by Rey Mcfarland MD) Hx of seizure disorder Per pt. states he was told they were seizure like symptoms related to stress hasn't had an event in 10+ years Surgical History (Updated 11/04/21 @ 07:50 by Gail Burnett RN) H/O cystoscopy S/P cystoscopy with ureteral stent placement Social History Smoking/Tobacco Use Status: Current every day Tobacco Type: cigarettes Smoking risk assessment performed?: Yes Alcohol Intake: current Alcohol Intake frequency: holidays/special occasions only Drug use: Never Substance use type: does not use Do you feel safe at home: Yes Do you feel safe in your relationship?: Yes Additional Social history: pt is currently not in a relationship Meds Allergies and Home Medications Allergies Allergy/AdvReac Type Severity Reaction Status Date / Time Penicillins Allergy Mild as chld Unverified 11/04/21 07:49 blueberry [Blueberry] Allergy Unknown vomiting, Unverified 11/04/21 07:49 and difficulty breathing Home Medications Medication Instructions Recorded Confirmed Type albuterol sulfate 90 mcg/actuation 2 puff inhalation Q6H PRN 10/28/21 11/04/21 History aerosol inhaler tamsulosin 0.4 mg capsule (Flomax) 0.4 mg PO DAILY #20 caps 10/28/21 11/04/21 Rx Exam Const General: cooperative Neck Neck: supple Resp Effort & Inspection: normal respiratory effort Auscultation: clear to auscultation bilaterally Cardio Rate: regular rate Rhythm: regular rhythm GI Palpation: soft and no masses Neuro General: patient alert, patient awake and patient oriented x3 Results Last Vital Signs Temp 36.3 C L 11/04/21 07:30 Pulse 72 11/04/21 07:30 Resp 18 11/04/21 07:30 BP 141/90 H 11/04/21 07:30 Pulse Ox 97 11/04/21 07:30
--- NOTE | 2021-11-04 08:00 | DI.RAD_ITS ---
Exam(s) XR RETROGRADE IN OR EXAM: XR RETROGRADE IN OR CLINICAL HISTORY: LEFT URETERAL STONE TECHNIQUE: 2D and realtime digital imaging was performed. CONTRAST MATERIAL: Refer to procedure report. COMPARISON: No exams were available for comparison FINDINGS: Fluoroscopy was provided for Dr. Mcfarland during the performance of a retrograde evaluation of the christie l collecting system. Please refer to the procedure report for complete details. Ka,r=9.5 mGy IMPRESSION: RADIATION DOSE DELIVERED:
[2021-11-04] MEDS: Lactated Ringers 1,000 ML 80 ML IV (08:03)
[2021-11-04] MEDS: CIPROFLOXACIN 400 MG/200 ML BAG 200 MG IVPB (08:11)
[2021-11-04] MEDS: Lidocaine 2% Jelly 6 ML SYR (08:44)
--- NOTE | 2021-11-04 09:11 | W.PM.DSUDISC ---
Discharge Plan Disposition Patient Disposition: HOME Condition: Good Discharge Details Reason For Visit: ureteroscopy Attending Provider: Rey Mcfarland Primary Care Provider: Shay Orellana Home Meds and New Rx's Prescriptions: No Action albuterol sulfate 90 mcg/actuation HFA aerosol inhaler 2 puff inhalation Q6H PRN tamsulosin [Flomax] 0.4 mg capsule 0.4 mg PO DAILY Qty: 20 0RF Discharge Instructions Additional Instructions: Followup for stent removal early next week - tell my office pt has stent with string Followup appt 6 to 8 weeks with renal US no need to strain urine Activity:: Activity as Tolerated Shower/Bathe:: 24 hours Diet:: As Tolerated Discharge Orders Discharge Orders: Discharge Order (Routine); Ordered 11/04/21 Ordered By: Rey Mcfarland DS: Diagnosis Discharge Diagnosis (1) Left ureteral stone: Status: Acute
--- NOTE | 2021-11-04 09:14 | W.PM.OP ---
Date of service: 11/04/21 Time of Service: 09:14 Operative Note Operative Note DATE OF PROCEDURE: 11/04/21 PRE-OP DIAGNOSIS: Left ureteral stone POST-OP DIAGNOSIS: same PROCEDURE: cystoscopy, left retrograde pyelogram, left ureteroscopy with stone extraction, insert left ureteral stent SURGEON: Rey Mcfarland ANESTHESIA TYPE: General LMA/ETT Refer to Anesthesia Record ESTIMATED BLOOD LOSS: 5 PATHOLOGY: other (left ureteral stone for chemical analysis) COMPLICATIONS: None Patient was transported to: PACU Patient's condition: stable Implants: 4.8 Georgian by 22 to 30 cm left ureteral stent Indications: This is a 36-year-old gentleman who has a history of calcium based stones. The majority of his stones have been on his right side and may have required surgical procedures. He recently presented with left flank pain and was found to have a left mid ureteral stone. His symptoms have persisted so he presents now for stone manipulation. Findings: Stones at the level of the pelvic brim Procedure Description: Patient was brought to the operating room on 11/04/2021. After successful induction of general anesthesia, he was placed in the dorsal lithotomy position. He was given preoperative IV antibiotics. His genitalia was prepped and draped. 2% Xylocaine jelly was instilled into the urethra to act as a local anesthetic. A 22 Georgian rigid cystoscope was passed through the urethra into the bladder. The bladder was inspected with a 30 degree lens. The pendulous, bulbar and membranous urethra's appeared normal with no strictures. The prostatic urethra appeared normal. The bladder neck was entered and the bladder mucosa was inspected. Both ureteral orifices appeared normal. Clear urine was seen coming from each side. The left ureteral orifice was cannulated with a 5 Georgian access catheter. Retrograde film was obtained by injecting Omnipaque through the access catheter under fluoroscopic guidance. No specific filling defect was identified. I then passed a Glidewire through the lumen of the access catheter and the access catheter was removed. A dual-lumen catheter was passed and a second wire was positioned. We chose one of the wires as a working wire and the other as a safety wire. A ureteral access sheath was advanced over the working wire leaving the safety wire in place. The flexible ureteroscope was then inserted through the access sheath into the mid ureter. No stone was seen in the mid to upper ureter. The calyces were inspected andno free-floating stones were seen within the calyces. I then withdrew the scope and access catheter down the remainder of the ureter and to stones were visualized at the pelvic brim. Each of the stones were grasped in a 0 tip stone basket and removed. The stones were sent to pathology for permanent section. We then removed the ureteroscope and access sheath. I passed a 4.8 Georgian variable length stent over the safety wire. The proximal end of the stent was curled in the renal pelvis and the distal end was curled within the bladder. The positioning of the stent was confirmed both fluoroscopically and cystoscopically. The patient tolerated this procedure well with no complications.
--- NOTE | 2021-11-04 09:31 | W.ANESPOSTOP ---
Postoperative Evaluation Date, Time and Location Date Performed: 11/04/21 Time Performed: 09:31 Patient Location: PACU Vital Signs Most Recent Imported Vital Signs: Most Recent Vital Signs Temp Pulse Resp BP Pulse Ox 36.4 C L 56 L 24 97/71 L 95 11/04/21 09:20 11/04/21 09:20 11/04/21 09:20 11/04/21 09:20 11/04/21 09:20 Pain Score Most Recent Pain Score: Most Recent Pain Score Pain Level 5 11/04/21 07:30 Assessment Mental Status: Arousable with meaningful communication Airway and Respiratory Function: Patent airway with normal (patient baseline) respiratory exam Cardiovascular Function: Hemodynamically Stable Hydration Status: Adequately Hydrated Nausea & Vomiting: No Nausea or Vomiting Pain: Pain is tolerable per patient Peripheral Nerve Block: Patient did not receive a nerve block
[2021-11-04] MEDS: Phenazopyridine 200 MG TAB PO (10:01)
--- NOTE | 2021-11-04 11:27 | W.PM.DSUDISC ---
Discharge Plan Disposition Patient Disposition: HOME Condition: Good Discharge Details Reason For Visit: ureteroscopy Attending Provider: Rey Mcfarland Primary Care Provider: Shay Orellana Home Meds and New Rx's Prescriptions: New hydromorphone [Dilaudid] 4 mg tablet 4 mg PO Q6H PRN (Reason: pain) Qty: 12 0RF No Action albuterol sulfate 90 mcg/actuation HFA aerosol inhaler 2 puff inhalation Q6H PRN tamsulosin [Flomax] 0.4 mg capsule 0.4 mg PO DAILY Qty: 20 0RF Discharge Instructions Additional Instructions: Followup for stent removal early next week - tell my office pt has stent with string Followup appt 6 to 8 weeks with renal US no need to strain urine Stand Alone Forms: Anesthesia Discharge Inst., [facility] [place], [facility] ([facility]) Activity:: Activity as Tolerated Shower/Bathe:: 24 hours Diet:: As Tolerated Discharge Orders Discharge Orders: Discharge Order (Routine); Ordered 11/04/21 Ordered By: Rey Mcfarland DS: Diagnosis Discharge Diagnosis (1) Left ureteral stone: Status: Acute
[2021-11-08 15:34] LABS: Source: Left Ureter
== END 2021-11-04 11:35 | disposition home or self-care (01) ==
PROVIDERS: PCP Physician Assistant; Visit Provider Urology
PROC: (CPT 52320; principal; 2021-11-04 08:15)
DX: N20.1 Calculus of ureter (principal); F17.210 Nicotine dependence, cigarettes, uncomplicated
CPT/HCPCS: 52320; 52332; 74420; 82365; J0744; J1100; J1885; J2405

== ENCOUNTER 2021-12-20 16:55 | Emergency (ER) | payer OTHER, SELFPAY ==
[2021-12-20 16:57] VITALS: BP 146/97; PULSE 68; RESP 17; TEMP 37; O2SAT 98
--- NOTE | 2021-12-20 17:15 | DI.RAD_ITS ---
Exam(s) XR WRIST LT COMPLETE EXAM: XR WRIST LT COMPLETE CLINICAL HISTORY: lateral wrist pain. TECHNIQUE: 2D digital imaging was performed. COMPARISON: No exams were available for comparison FINDINGS: 3 views No evidence of fracture or dislocation. No significant ulnar variance. Bone density normal. No oss eous lesions. Scaphoid unremarkable. IMPRESSION: No significant osseous findings. DATA REPOSITORY: RADIATION DOSE DELIVERED:
--- NOTE | 2021-12-20 17:55 | DI.VRAD_ITS ---
PROCEDURE INFORMATION: Exam: XR Left Wrist Exam date and time: 12/20/2021 5:38 PM Age: 36 years old Clinical indication: Pain; Wrist; Left TECHNIQUE: Imaging protocol: Radiologic exam of the Left wrist. Views: 3 or more views. COMPARISON: No relevant prior studies available. FINDINGS: Bones/joints: Normal. Soft tissues: Normal. IMPRESSION: No acute findings. Dictated and Authenticated by: Mookie Soria MD. Ordering:ROSIE Bernard MD
[2021-12-20] MEDS: Ibuprofen 800 MG TAB PO (17:59)
--- NOTE | 2021-12-20 18:19 | W.ED.GENAD ---
Discharge Plan Disposition Patient Disposition: HOME Condition: Good Discharge Details Clinical Impression: Arm pain, left, Tendonitis Primary Care Provider: Shay Orellana ED Provider: Marco Antonio Bernal Home Meds and New Rx's Prescriptions: No Action albuterol sulfate 90 mcg/actuation HFA aerosol inhaler 2 puff inhalation Q6H PRN ciprofloxacin HCl [Cipro] 250 mg tablet 250 mg PO BID Qty: 10 0RF ondansetron 4 mg tablet,disintegrating 4 mg PO Q6H PRN (Reason: nausea and vomiting) Qty: 12 0RF phenazopyridine [Pyridium] 200 mg tablet 200 mg PO TID PRN (Reason: pain) Qty: 12 0RF hydromorphone [Dilaudid] 4 mg tablet 4 mg PO Q6H PRN (Reason: pain) Qty: 12 0RF Discharge Instructions Instructions: Tennis Elbow (ED) Additional Instructions: At this time I suspect that you have irritation at your lateral epicondyles on your left elbow. Additionally there appears to be irritation at the tendon origin at your wrist. Please take Tylenol and Motrin as needed for pain. Please use the wrist splint in the meantime and you can also use a pressure band/tennis elbow band on your elbow if needed. Please follow-up closely with your family doctor for reassessment. If your symptoms persist over the next 1 to 2 weeks in spite of the brace and Tylenol and Motrin you may require follow-up with an business performance specialist. Please left arm for significant movements for the next 1 to 2 weeks to help it heal. If you notice any worsening of your symptoms, or any new symptoms such as vomiting, diarrhea, fever, chills, shortness of breath, chest pain, numbness, weakness, or fainting , please return immediately to the emergency department for reevaluation. Please follow up with your primary care provider as soon as possible for reassessment and reevaluation. As always, it was a pleasure participating in your medical care today. Stand Alone Forms: Work Release Referrals: Shay Orellana [Primary Care Provider] - Discharge Data Discharge Date/Time-TO BE ENTERED AT DEPARTURE: 12/20/21 18:32 Medical Decision Making 36-year-old male who is right-hand dominant presents today for evaluation of pain in his left hand and forearm. 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 No trauma.. No numbness or tingling. He states that now whenever he moves his hand by the index finger it brings about significant pain in the lateral aspect of his elbow. He denies any previous pain here. No other complaints at this time. No other modifying factors. Exam is slightly atypical. patient left hand and left elbow demonstrates no evidence of redness, swelling or trauma. No significant bony tenderness over the elbow, he does have some mild subjective achiness near the left lateral epicondyle. Patient does have some bony tenderness though near the base of the second metacarpal with movement of his fingers. And then he has notable pain with pronation and supination ranging from the base of the second metacarpal, towards the lateral epicondyles of the left arm. Patient otherwise demonstrates good deck steward strength, good movement of all fingers, good sensation and good two-point discrimination. Brisk capillary refill in all fingertips. Clinically the patient's history and symptoms at this time appear more consistent with lateral epicondylitis, however there is a focal area of pain at the base of the second metacarpal, which may be secondary to an osseous injury. X-ray shows no evidence of fracture. Recommend NSAIDs at home, ice, and diminished use of the area for the time being. We did give a universal wrist splint as well as recommended tension band for 4 tennis elbow. Suspect potential mild tendinopathy. Discussed red flags for which to return. I have extensively reviewed the treatment plan and discharge instructions with the patient. I have addressed all patient concerns at this time. The patient was made aware of what symptoms to monitor for that would warrant a return to the emergency department. Discussed the plan with the patient, they demonstrate verbal understanding and agreement with our assessment and plan at this time. The documentation in this chart was dictated using [employer] dictation software. Please excuse any dictation errors. FINDINGS: Bones/joints: Normal. Soft tissues: Normal. IMPRESSION: No acute findings. Thank you for allowing us to participate in the care of your patient. Dictated and Authenticated by: Mookie Soria MD 12/20/2021 5:55 PM Eastern Time ([place] & [place]) HPI General Date/Time Provider Initiated Documentation: 12/20/21 17:26. HPI Narrative: 36-year-old male who is right-hand dominant presents today for evaluation of pain in his left hand and forearm. 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 No trauma.. No numbness or tingling. He states that now whenever he moves his hand by the index finger it brings about significant pain in the lateral aspect of his elbow. He denies any previous pain here. No other complaints at this time. No other modifying factors. Related Data Home Medications Medication Instructions Recorded Confirmed albuterol sulfate 90 mcg/actuation 2 puff inhalation Q6H PRN 10/28/21 12/20/21 aerosol inhaler hydromorphone 4 mg tablet 4 mg PO Q6H PRN pain #12 tabs 11/04/21 12/20/21 (Dilaudid) ciprofloxacin HCl 250 mg tablet 250 mg PO BID antibiotic #10 tabs 11/05/21 12/20/21 (Cipro) ondansetron 4 mg disintegrating 4 mg PO Q6H PRN nausea and 11/05/21 12/20/21 tablet vomiting #12 tabs phenazopyridine 200 mg tablet 200 mg PO TID PRN pain #12 tabs 11/05/21 12/20/21 (Pyridium) Previous Rx's Medication Instructions Recorded hydromorphone 4 mg tablet 4 mg PO Q6H PRN pain #12 tabs 11/04/21 (Dilaudid) ciprofloxacin HCl 250 mg tablet 250 mg PO BID antibiotic #10 tabs 11/05/21 (Cipro) ondansetron 4 mg disintegrating 4 mg PO Q6H PRN nausea and 11/05/21 tablet vomiting #12 tabs phenazopyridine 200 mg tablet 200 mg PO TID PRN pain #12 tabs 11/05/21 (Pyridium) Allergies Allergy/AdvReac Type Severity Reaction Status Date / Time Penicillins Allergy Mild as chld Unverified 12/20/21 17:01 blueberry [Blueberry] Allergy Unknown vomiting, Unverified 12/20/21 17:01 and difficulty breathing General Stated Complaint: Orthopedic YASMEEN: 4 Review of Systems All systems reviewed & are unremarkable except as noted in HPI and below PFSH All Active Problems (Updated 12/20/21 @ 21:46 by Marco Antonio Bernal DO) Arm pain, left (Acute) Tendonitis (Acute) Left ureteral stone (Acute) Asthma (Chronic) S/P cholecystectomy (Chronic) Low back strain (Acute) Shortness of breath (Acute) Kidney stone on left side (Acute) Low back pain (Acute) Chest wall pain (Acute) Lumbar strain (Acute) Medical History Hx of seizure disorder Per pt. states he was told they were seizure like symptoms related to stress hasn't had an event in 10+ years Surgical History H/O cystoscopy S/P cystoscopy with ureteral stent placement Social History Smoking/Tobacco Use Status: Current every day Tobacco Type: cigarettes Smoking risk assessment performed?: Yes Alcohol Intake: current Alcohol Intake frequency: holidays/special occasions only Drug use: Never Substance use type: does not use Do you feel safe at home: Yes Do you feel safe in your relationship?: Yes Additional Social history: pt is currently not in a relationship Exam Narrative Exam Narrative: 1.Const: Well-nourished, Well-developed, appearing stated age 2.Eyes: PERRL, no conjunctival injection, and symmetrical lids. 3.ENT: Atraumatic external nose and ears. Moist MM. Neck: Symmetric, trachea midline, No thyromegaly. 4.CVS: +S1/S2, No murmurs or gallops. Peripheral pulses 2+ and equal in all extremities. Brisk capillary refill in all extremities. 5.RESP: Unlabored respiratory effort. Clear to auscultation bilaterally. No wheezes rales or rhonchi 6.GI: Soft, Nontender/Nondistended, No hepatosplenomegaly. No guarding or rebound. 7.MSK: Normocephalic/Atraumatic, patient left hand and left elbow demonstrates no evidence of redness, swelling or trauma. No significant bony tenderness over the elbow, he does have some mild subjective achiness near the left lateral epicondyle. Patient does have some bony tenderness though near the base of the second metacarpal with movement of his fingers. And then he has notable pain with pronation and supination ranging from the base of the second metacarpal, towards the lateral epicondyles of the left arm. Patient otherwise demonstrates good deck steward strength, good movement of all fingers, good sensation and good two-point discrimination. Brisk capillary refill in all fingertips. 8.Skin: Warm, Dry. No rashes or lesions. 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 Sensation grossly intact, no focal neurologic deficits. 10.Psych: (AAO) x3. Appropriate mood and affect Course Vital Signs Vital signs: Vital Signs Temperature 37.0 C 12/20/21 16:57 Pulse 68 12/20/21 16:57 Respiratory Rate 17 12/20/21 16:57 Blood Pressure 146/97 H 12/20/21 16:57 Pulse Oximetry 98 12/20/21 16:57 Temperature 37.0 C 12/20/21 16:57 Temperature Source Temporal Artery Scan 12/20/21 16:57 Pulse 68 12/20/21 16:57 Respiratory Rate 17 12/20/21 16:57 Respiratory Effort Non-Labored 12/20/21 17:00 Blood Pressure 146/97 H 12/20/21 16:57 Blood Pressure Position Sitting 12/20/21 16:57 Pulse Oximetry 98 12/20/21 16:57 Oxygen Delivery Method Room Air 12/20/21 16:57 Oxygen Flow Rate 0 12/20/21 16:57 Pain Level 7 12/20/21 17:00 PAWSS Have you Been Recently Intoxicated or Drunk Within the Last 30 days?: No Have you Ever Experienced Previous Episodes of Alcohol Withdrawal?: No Have you ever Experienced Withdrawal Seizures?: No Have you ever Experienced Delirium Tremens(DT)s?: No Have you ever undergone Alcohol Rehabilitation Treatment (i.e, inpt ot outpatient treatment programs)?: No Have you ever Experienced Blackouts?: No Have you ever Combined Alcohol with other Downers within the last 90 days?: No Have you ever Combined Alcohol with any other Substance of Abuse during the last 90 days?: No Result: 0
== END 2021-12-20 18:32 | disposition home or self-care (01) ==
LOC: ER 18:31
PROVIDERS: Emergency Provider Student in an Organized Health Care Education/Training Program; PCP Physician Assistant
DX: M79.602 Pain in left arm (principal); M77.8 Other enthesopathies, not elsewhere classified; M25.532 Pain in left wrist; X50.0XXA Overexertion from strenuous movement or load, initial encounter; Y99.0 Civilian activity done for income or pay
CPT/HCPCS: 99283; 73110

== ENCOUNTER 2022-04-07 17:46 | Emergency (ER) | payer BC, MEDICAID, SELFPAY ==
[2022-04-07 17:58] VITALS: BP 141/95; PULSE 71; RESP 20; TEMP 36.3; O2SAT 97
--- NOTE | 2022-04-07 18:55 | ED.GENADUL_ITS ---
Discharge Plan Disposition Patient Disposition: Home Discharge Details Clinical Impression: Tendinitis Primary Care Provider: Shay Orellana ED Provider: Cristy Harris Home Meds and New Rx's Prescriptions: New methylprednisolone [Medrol (Ajith)] 4 mg tablets,dose pack See Rx Instructions .ROUTE .COMPLEX Qty: 21 0RF Rx Instructions: orally per package directions Continued albuterol sulfate 90 mcg/actuation HFA aerosol inhaler 2 puff inhalation Q6H PRN meloxicam 15 mg tablet 15 mg PO DAILY Qty: 30 1RF Rx Instructions: Take one tablet daily for inflammation and pain Discharge Instructions Instructions: Tendinitis (ED) Additional Instructions: You must rest your arm, refrain from repetitive motion By a tendinitis band for your pain [id number] or online Take ibuprofen 600 mg every 8 hours with food I have written you for 4 tablets of oxycodone, this is very addictive, do not take this medication unless your pain is uncontrolled with ibuprofen Should you have fever, chills, swelling, worsening pain, please return immediately, please keep your orthopedic appointment Stand Alone Forms: Work Release Discharge Data Discharge Date/Time-TO BE ENTERED AT DEPARTURE: 04/07/22 19:13 HPI General Date/Time Provider Initiated Documentation: 04/07/22 18:39 . HPI Narrative: This 36-year-old male presents with report of left elbow pain. States he has a history of lateral epicondylitis and reached to grab something heavy at work yesterday and had recurrence of pain. He states that he has a PT injection. He does not feel like the injection helped much. Denies any fever or chills. He denies any direct trauma to the area. He states that the same pain he had previously. He denies any additional complaints at this time. Related Data Home Medications Medication Instructions Recorded Confirmed albuterol sulfate 90 mcg/actuation 2 puff inhalation Q6H PRN 10/28/21 04/07/22 aerosol inhaler meloxicam 15 mg tablet 15 mg PO DAILY #30 tabs 01/24/22 04/07/22 methylprednisolone 4 mg tablets in See Rx Instructions PO .COMPLEX 04/07/22 a dose pack (Medrol (Ajith)) #21 dose pk Previous Rx's Medication Instructions Recorded meloxicam 15 mg tablet 15 mg PO DAILY #30 tabs 01/24/22 methylprednisolone 4 mg tablets in See Rx Instructions PO .COMPLEX 04/07/22 a dose pack (Medrol (Ajith)) #21 dose pk Allergies Allergy/AdvReac Type Severity Reaction Status Date / Time Penicillins Allergy Mild as chld Unverified 04/07/22 18:01 blueberry [Blueberry] Allergy Unknown vomiting, Unverified 04/07/22 18:01 and difficulty breathing General Stated Complaint: Orthopedic YASMEEN: 4 PFSH All Active Problems (Updated 04/07/22 @ 18:58 by SONNY Morris) Tendinitis (Acute) Left wrist tendonitis (Acute) Left lateral epicondylitis (Acute) 40 mg Depo-medrol injection: 03/21/22 Left ureteral stone (Acute) Asthma (Chronic) S/P cholecystectomy (Chronic) Low back strain (Acute) Shortness of breath (Acute) Kidney stone on left side (Acute) Low back pain (Acute) Chest wall pain (Acute) Lumbar strain (Acute) Medical History Hx of seizure disorder Per pt. states he was told they were seizure like symptoms related to stress hasn't had an event in 10+ years Surgical History H/O cystoscopy S/P cystoscopy with ureteral stent placement Social History Smoking/Tobacco Use Status: Current every day Tobacco Type: cigarettes Smoking risk assessment performed?: Yes Alcohol Intake: current Alcohol Intake frequency: holidays/special occasions only Drug use: Never Substance use type: does not use Do you feel safe at home: Yes Do you feel safe in your relationship?: Yes Additional Social history: pt is currently not in a relationship Exam Const General: cooperative, comfortable and no acute distress Extrem Other: Left lateral elbow with tenderness Neurovascularly intact, no tenderness to left shoulder or left wrist no redness or swelling appreciated Course Vital Signs Vital signs: Vital Signs Temperature 36.3 C L 04/07/22 17:58 Pulse 71 04/07/22 17:58 Respiratory Rate 20 04/07/22 17:58 Blood Pressure 141/95 H 04/07/22 17:58 Pulse Oximetry 97 04/07/22 17:58 Temperature 36.3 C L 04/07/22 17:58 Pulse 71 04/07/22 17:58 Respiratory Rate 20 04/07/22 17:58 Respiratory Effort Normal, Non-Labored 04/07/22 18:04 Blood Pressure 141/95 H 04/07/22 17:58 Blood Pressure Position Sitting 04/07/22 17:58 Pulse Oximetry 97 04/07/22 17:58 Oxygen Delivery Method Room Air 04/07/22 17:58 Oxygen Flow Rate 0 04/07/22 17:58 Pain Level 7 04/07/22 17:58
== END 2022-04-07 19:13 | disposition home or self-care (01) ==
PROVIDERS: Emergency Provider Physician Assistant; PCP Physician Assistant
DX: M77.12 Lateral epicondylitis, left elbow (principal)
CPT/HCPCS: 99283

== ENCOUNTER 2022-05-30 00:37 | Outpatient (CLI) | payer OTHER, SELFPAY ==
--- NOTE | 2022-05-30 08:30 | DI.MRI_ITS ---
Exam(s) MR UPPER JOINT LT WO EXAM: MR UPPER JOINT LT WO CLINICAL HISTORY: pain,injury,LT LATERAL EPICONDYLITIS, M77.12. TECHNIQUE: Multiplanar multisequence MRI was performed. COMPARISON: No exams were available for comparison FINDINGS: BONES: There is no fracture or contusion pattern. JOINTS: The articular cartilage is unremarkable. No joint effusion is present. TENDONS: Common flexors: Unremarkable. Common extensors: Unremarkable. Biceps: Unremarkable. Triceps: Unremarkable. MUSCLES: Unremarkable. MEDIAN NERVE: Unremarkable on this noncontrast examination. ULNAR NERVE: Unremarkable on this noncontrast examination. SOFT TISSUES: Unremarkable. LIGAMENTS: Ulnar collateral: Unremarkable. Radial collateral: Unremarkable. OTHER: IMPRESSION: Unremarkable MRI of the left elbow. DATA REPOSITORY:
== END 2022-05-30 00:57 ==
PROVIDERS: PCP Physician Assistant; Visit Provider Student in an Organized Health Care Education/Training Program
DX: M77.12 Lateral epicondylitis, left elbow (principal)
CPT/HCPCS: 73221

== ENCOUNTER 2022-07-25 09:44 | Outpatient (REF) | payer BC, MEDICAID, SELFPAY ==
[2022-07-25 16:04] LABS: HCT 53.8 % (40.0-50.0); HGB 18.1 g/dL (13.5-17.5); MCH 30.2 pg (27.0-33.0); MCHC 33.6 % (32.0-36.0); MCV 90 fL (80-95); MPV 11.1 fL (8.0-11.0); Platelet Count 236 10^3/uL (130-400); RBC 5.99 10^6/uL (4.36-5.78); RDW 13.3 % (11.8-14.1); RDW-SD 44.1 fL
[2022-07-25 16:48] LABS: ALT 57 U/L (16-63); AST 25 U/L (15-37); Albumin 3.8 g/dL (3.4-5.0); Alkaline Phosphatase 80 U/L (46-116); Anion Gap 9.7 mmol/L (3-11); BUN 17 mg/dL (7-18); Bilirubin, Total 0.5 mg/dL (0.2-1.0); CO2 27.3 mmol/L (21.0-32.0); CREATININE 1.2 mg/dL (0.70-1.30); Calculated LDL 127 mg/dL (<100); Chloride 106 mmol/L (98-107); Cholesterol 224 mg/dL (<200); Estimated GFR 78.89 (mL/min/1.73m2); Glucose 109 mg/dL (74-106); HDL Cholesterol 38 mg/dL (40-60); Potassium 3.9 mmol/L (3.5-5.1); Sodium 143 mmol/L (136-145); Total Protein 7.2 g/dL (6.4-8.2); Triglyceride 296 mg/dL (<150)
== END 2022-07-25 09:45 | disposition home or self-care (01) ==
LOC: NCHCN 09:44
PROVIDERS: PCP Physician Assistant; Visit Provider Physician Assistant
DX: D75.1 Secondary polycythemia (principal); E78.5 Hyperlipidemia, unspecified
CPT/HCPCS: 80053; 80061; 85027

== ENCOUNTER → 2022-12-28 | Outpatient (CLI) | payer BC, SELFPAY ==
--- NOTE | 2022-12-28 07:30 | DI.RAD_ITS ---
Exam(s) XR ABDOMEN FLAT PLATE EXAM: 2D digital imaging was performed. CLINICAL HISTORY: monitoring renal stones to left,h/o renal calculi, z87.442. COMPARISON: CT CT ABDOMEN PELVIS WO from 09/28/2021 TECHNIQUE: Supine views of the abdomen was performed. Two images were obtained. FINDINGS: LUNG BASES: Clear. BOWEL GAS PATTERN: Nondistended. FREE AIR: None. CALCIFICATIONS: Phleboliths are seen in the left pelvis. The kidneys are obscured by overlying bowel . OSSEOUS STRUCTURES: Normal for age. OTHER FINDINGS: There are surgical clips in the right upper quadrant of the abdomen. IMPRESSION: No definite urinary tract calculi are seen. DATA REPOSITORY: RADIATION DOSE DELIVERED:
== END ==
PROVIDERS: PCP Physician Assistant; Visit Provider Nurse Practitioner Gerontology
DX: Z87.442 Personal history of urinary calculi (principal)
CPT/HCPCS: 74018

== ENCOUNTER 2023-06-02 10:26 | Outpatient (REF) | payer BC, SELFPAY ==
[2023-06-02 14:53] LABS: Abs Immature Grans 0.02 10^3/uL (0.0-0.06); Absolute Eosinophil Count 0.19 10^3/uL (0.0-0.7); Absolute Lymphocyte Count 2.61 10^3/uL (1.2-3.4); Absolute Monocyte Count 0.46 10^3/uL (0.1-0.8); Absolute Neutrophil Count 5.61 10^3/uL (1.2-6.7); Basophils % 1.1; Eosinophils % 2.1; HCT 53.6 % (40.0-50.0); HGB 18.7 g/dL (13.5-17.5); Immature Grans % 0.2; MCH 30.6 pg (27.0-33.0); MCHC 34.9 % (32.0-36.0); MCV 88 fL (80-95); MPV 10.6 fL (8.0-11.0); Monocytes % 5.1; Neutrophils % 62.5; Platelet Count 249 10^3/uL (130-400); RDW 13.5 % (11.8-14.1); RDW-SD 43.5 fL; WBC 8.99 10^3/uL (4.4-10.8)
[2023-06-02 14:58] LABS: RBC 6.11 10^6/uL (4.36-5.78)
[2023-06-02 15:19] LABS: ALT 97 U/L (16-63); AST 33 U/L (15-37); Alkaline Phosphatase 98 U/L (46-116); Anion Gap 12.2 mmol/L (3-11); BUN 14 mg/dL (7-18); Bilirubin, Total 0.6 mg/dL (0.2-1.0); CO2 24.8 mmol/L (21.0-32.0); CREATININE 1.2 mg/dL (0.70-1.30); Calcium 9.1 mg/dL (8.5-10.1); Calculated LDL 143 mg/dL (<100); Chloride 107 mmol/L (98-107); Cholesterol 233 mg/dL (<200); Glucose 106 mg/dL (74-106); HDL Cholesterol 44 mg/dL (40-60); Potassium 4.3 mmol/L (3.5-5.1); Sodium 144 mmol/L (136-145); Total Protein 7.2 g/dL (6.4-8.2); Triglyceride 232 mg/dL (<150)
== END 2023-06-02 10:27 | disposition home or self-care (01) ==
LOC: NCHCN 10:26
PROVIDERS: PCP Physician Assistant; Visit Provider Physician Assistant
DX: E78.5 Hyperlipidemia, unspecified (principal); D75.1 Secondary polycythemia
CPT/HCPCS: 80053; 80061; 85025

== ENCOUNTER 2023-08-04 07:51 | Emergency (ER) | payer BC, SELFPAY ==
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
[2023-08-04 07:59] VITALS: BP 168/97; PULSE 108; RESP 18; TEMP 37.3; O2SAT 99
[2023-08-04] MEDS: Ibuprofen 600 MG TAB PO (08:09)
[2023-08-04] MEDS: Acetaminophen 325 MG TAB 650 MG PO (08:09)
[2023-08-04] MEDS: Lidocaine/Epinephri/Tetracaine Topical Gel 3 ML (08:40)
[2023-08-04] MEDS: Lidocaine 1% Multi-Dose W/EPI 1/100,000 50 ML VIAL (08:49)
[2023-08-04 09:44] VITALS: BP 155/72; PULSE 88; RESP 18; O2SAT 95
== END 2023-08-04 09:44 | disposition home or self-care (01) ==
PROVIDERS: Emergency Provider Physician Assistant; PCP Physician Assistant
DX: S01.81XA Laceration without foreign body of other part of head, initial encounter (principal); Y04.8XXA Assault by other bodily force, initial encounter
CPT/HCPCS: 12015; 90471; 90715; J2004

== ENCOUNTER 2023-08-28 10:06 | Emergency (ER) | payer BC, SELFPAY ==
[2023-08-28 10:20] VITALS: BP 138/88; PULSE 68; RESP 14; TEMP 36.9; O2SAT 98
[2023-08-28 11:38] VITALS: BP 127/78; PULSE 63; RESP 17; TEMP 36.8; O2SAT 98
== END 2023-08-28 12:42 | disposition left against medical advice (07) ==
LOC: ER 10:19
PROVIDERS: Emergency Provider Emergency Medicine; PCP Physician Assistant
DX: Z53.21 Procedure and treatment not carried out due to patient leaving prior to being seen by health care provider (principal)

== ENCOUNTER 2023-08-29 03:54 | Emergency (ER) | payer BC, SELFPAY ==
[2023-08-29 03:56] VITALS: BP 138/83; PULSE 76; RESP 18; TEMP 36.8; O2SAT 100
--- NOTE | 2023-08-29 04:00 | W.ED.GENAD ---
Discharge Plan Disposition Patient Disposition: Home Condition: Good Discharge Details Clinical Impression: Acute gout involving toe of right foot Primary Care Provider: Shay Orellana ED Provider: Peterson Machuca Meds and New Rx's Prescriptions: New ibuprofen 600 mg tablet 600 mg PO Q8H Qty: 15 0RF Continued albuterol sulfate 90 mcg/actuation HFA aerosol inhaler 2 puff inhalation Q6H PRN atorvastatin 20 mg tablet 20 mg PO DAILY Discharge Instructions Instructions: Low Purine Diet, Gout ED Additional Instructions: You were seen for right big toe pain and swelling with no associated injury. The joint involved with the associated redness and swelling is consistent with acute gout. Since you improved with ibuprofen use we will continue this over the next 5 days. Ice on and off to help with the pain and swelling. Keep the foot elevated when you are able. Follow-up with primary care end of week if not improving. Return to ED for any fever, chills, worsening pain or redness especially anything streaking up the leg. Discharge Data Discharge Date/Time-TO BE ENTERED AT DEPARTURE: 08/29/23 04:13 HPI General Mode of arrival: ambulatory. Date/Time Provider Initiated Documentation: 08/29/23 04:00. Limitations to Documentation: no limitations. Information obtained by: patient. HPI Narrative: Patient presents to the ED with right big toe pain and swelling. 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 Foot was very painful and swollen. He stopped here first but because of the weight left and went to work. He denies any injury. He spoke to some coworkers who recommended that he take ibuprofen as it seemed to be similar to his coworkers history of gout. Patient reports significant improvement with ibuprofen. Presents now to the ED after his shift for evaluation. He otherwise feels well with no complaints of fever, chills. He has never had something similar to this in the past. Only seems to be affecting the big toe on the right foot. Related Data Home Medications ?Medication ?Instructions ?Recorded ?Confirmed albuterol sulfate 90 mcg/actuation 2 puff inhalation Q6H PRN 10/28/21 08/29/23 aerosol inhaler atorvastatin 20 mg tablet 20 mg PO DAILY 08/28/23 08/29/23 ibuprofen 600 mg tablet 600 mg PO Q8H #15 tabs 08/29/23 Previous Rx's ?Medication ?Instructions ?Recorded ibuprofen 600 mg tablet 600 mg PO Q8H #15 tabs 08/29/23 Allergies Allergy/AdvReac Type Severity Reaction Status Date / Time Penicillins Allergy Mild as chld Unverified 08/29/23 03:59 blueberry (Blueberry) Allergy Unknown vomiting, Unverified 08/29/23 03:59 and difficulty breathing General Stated Complaint: Orthopedic YASMEEN: 4 Review of Systems Narrative: Per HPI Exam Narrative Exam Narrative: Const: WDWN male in NAD. VS per triage. HEENT: NC/AT. Normal facial exam. Neck: Supple. Trachea midline. Lungs: Normal respiratory effort. Neuro: A+O x 3. Normal speech, mentation, gait. Cranial nerves II - XII grossly intact. No gross motor or sensory deficit. Ext: No C/C/E. Right foot with mild swelling and erythema to the great toe MTP joint. Some pain with ROM of this joint. Other toes, foot, ankle normal. Course Vital Signs Vital signs: Vital Signs Temperature 98.3 F 08/29/23 03:56 Pulse 76 08/29/23 03:56 Respiratory Rate 18 08/29/23 03:56 Blood Pressure 138/83 08/29/23 03:56 Pulse Oximetry 100 08/29/23 03:56 Temperature 98.3 F 08/29/23 03:56 Temperature Source Tympanic 08/29/23 03:56 Pulse 76 08/29/23 03:56 Respiratory Rate 18 08/29/23 03:56 Blood Pressure 138/83 08/29/23 03:56 Pulse Oximetry 100 08/29/23 03:56 Pain Level 6 08/29/23 03:56 Medical Decision Making Patient presenting to ED with right big toe pain consistent with acute gouty attack. Pain and swelling improved with ibuprofen alone. No recent trauma or injury. No fever or systemic symptoms. Fairly decent range of motion of the MTP joint itself. I do not suspect a septic joint. Given his dramatic response to ibuprofen we will continue ibuprofen 3 times a day for the next 5 days. Follow-up with primary care. Return precautions provided. [facility] All Active Problems Acute gout involving toe of right foot (Acute) Left lateral epicondylitis (Acute) 40 mg Depo-medrol injection: 03/21/22 Kidney stone on left side (Acute) Medical History Kidney stones Asthma Hx of seizure disorder Per pt. states he was told they were seizure like symptoms related to stress hasn't had an event in 10+ years Surgical History S/P cholecystectomy S/P arthroscopic knee surgery S/P cystoscopy with ureteral stent placement H/O cystoscopy Social History Smoking/Tobacco Use Status: Current every day Tobacco Type: cigarettes Smoking risk assessment performed?: Yes Alcohol Intake: current Alcohol Intake frequency: holidays/special occasions only Drug use: Never Substance use type: does not use Do you feel safe at home: Yes Do you feel safe in your relationship?: Yes Additional Social history: pt is currently not in a relationship
== END 2023-08-29 04:13 | disposition home or self-care (01) ==
LOC: ER 04:11
PROVIDERS: Emergency Provider Emergency Medicine; PCP Physician Assistant
DX: M10.071 Idiopathic gout, right ankle and foot (principal)
CPT/HCPCS: 99282; 99283

== ENCOUNTER 2024-04-03 21:39 | Emergency (ER) | payer OTHER, SELFPAY ==
[2024-04-03] VITALS (11 sets, daily range): BP systolic 130–162; BP diastolic 65–94; PULSE 65–75; RESP 12–29; TEMP 36.8; O2SAT 92–99
--- NOTE | 2024-04-03 21:30 | RT.EKG_ITS ---
APPROVED REPORT Exam: Resting ECG Reason for Exam: Patient Location: E HR:64 bpm ECG Measurements Heart Rate 64 AXIS OK 139 P 41 QRSd 94 QRS 3 QT 387 T 11 QTc 400 Conclusion Sinus rhythm...normal P axis, V-rate 60- 99
--- NOTE | 2024-04-03 21:52 | ED.GENADUL_ITS ---
Discharge Plan Disposition Patient Disposition: Home Condition: Stable Discharge Details Clinical Impression: Asthma exacerbation, Chest tightness Primary Care Provider: Shay Orellana ED Provider: Grzegorz Byrd Home Meds and New Rx's Prescriptions: New prednisone 20 mg tablet 60 mg PO DAILY 4 Days Qty: 12 0RF Continued albuterol sulfate 90 mcg/actuation HFA aerosol inhaler 2 puff inhalation Q6H PRN atorvastatin 20 mg tablet 20 mg PO DAILY ibuprofen 600 mg tablet 600 mg PO Q8H PRN Discharge Instructions Additional Instructions: Your blood work and chest x-ray did not show any concerning findings at this time. If you are not feeling better in a few days I do recommend following up with your primary care provider. If you have severe worsening shortness of breath or severe worsening chest pain and return to the emergency department for reevaluation. HPI General Mode of arrival: ambulatory . Date/Time Provider Initiated Documentation: 04/03/24 21:40 . Limitations to Documentation: no limitations . Information obtained by: patient . History of Present Illness 38 year old M presents to the emergency department with the chief complaint of dyspnea, cough, chest tightness, described as moderate, Patient started experiencing this hour(s) (9) and it has been constant. Rest improves symptom(s), Movement worsens symptoms . Patient notes chest pain, cough, fever/chills and shortness of breath. Related Data Home Medications ?Medication ?Instructions ?Recorded ?Confirmed albuterol sulfate 90 mcg/actuation 2 puff inhalation Q6H PRN 10/28/21 04/03/24 aerosol inhaler atorvastatin 20 mg tablet 20 mg PO DAILY 08/28/23 04/03/24 ibuprofen 600 mg tablet 600 mg PO Q8H PRN 04/03/24 04/03/24 prednisone 20 mg tablet 60 mg (3 x 20 mg) PO DAILY 4 days 04/03/24 #12 tabs Previous Rx's ?Medication ?Instructions ?Recorded prednisone 20 mg tablet 60 mg (3 x 20 mg) PO DAILY 4 days 04/03/24 #12 tabs Allergies Allergy/AdvReac Type Severity Reaction Status Date / Time Penicillins Allergy Mild as chld Unverified 04/03/24 21:43 blueberry (Blueberry) Allergy Unknown vomiting, Unverified 04/03/24 21:43 and difficulty breathing General Stated Complaint: SOB YASMEEN: 3 Review of Systems All systems reviewed & are unremarkable except as noted in HPI and below Constitutional Constitutional: Reports chills, Reports fever(s) and Denies weakness Cardiovascular Cardiovascular: Reports chest pain and Reports dyspnea Respiratory Respiratory: Reports cough and Reports dyspnea Gastrointestinal Gastrointestinal: Denies abdominal pain, Denies nausea and Denies vomiting Musculoskeletal Musculoskeletal: Denies joint swelling Neurologic Neurologic: Denies weakness Exam Const General: no acute distress Orientation: alert HENMT Head: normal to inspection Ears: external ears normal General nose exam: external nose normal Mouth: moist mucous membranes Eyes General: appearance normal, both eyes and all related structures Neck Neck: normal visual inspection Resp Effort & Inspection: normal respiratory effort and able to speak in complete sentences Auscultation: wheezes Cardio Jugular venous pressure: no JVD Rate: regular rate Heart Sounds: no murmurs Skin General skin exam: no rashes or lesions noted Neuro General: patient alert and patient oriented x3 Extrem General: normal to inspection Psych Mental Status: mental status grossly normal Course Vital Signs Vital signs: Vital Signs Pulse 75 04/03/24 21:41 Respiratory Rate 27 H 04/03/24 21:41 Blood Pressure 158/88 H 04/03/24 21:41 Pulse Oximetry 98 04/03/24 21:41 Pulse 68 04/03/24 21:50 Pulse 75 04/03/24 21:46 Respiratory Rate 19 04/03/24 21:46 Respiratory Effort Short of Breath 04/03/24 21:45 Respiratory Depth Normal 04/03/24 21:45 Respiratory Pattern Tachypnea 04/03/24 21:45 Blood Pressure 162/94 H 04/03/24 21:46 Blood Pressure Mean 119 04/03/24 21:46 Blood Pressure Position Sitting 04/03/24 21:41 Pulse Oximetry 96 04/03/24 21:50 Oxygen Delivery Method Room Air 04/03/24 21:41 Oxygen Flow Rate 0 04/03/24 21:41 Pain Level 4 04/03/24 21:45 Medical Decision Making 38-year-old male who states he has a history of asthma, is a smoker, comes in with approximately 8 to 9 hours of dyspnea with exertion and feeling like his chest is tight. He states that for the last 4 to 5 days he has had subjective fevers and chills along with a cough. He denies any drug use, no recent travel. He is well-appearing on exam speaking in full sentences. He has apical wheezing bilaterally otherwise clear lung sounds. He has no JVD or leg swelling or calf tenderness. He has no tachycardia or hypoxia on arrival. I suspect asthma exacerbation in the setting of a URI but given his complaints of chest tightness I will check a troponin (has had symptoms for over 3 hours so if negative do not feel deltas indicated), and also CBC and CMP and send a Fluvid and obtain a chest x-ray. He has no tearing back pain and equal peripheral pulses so I doubt dissection. He is Wells score low and PERC negative so I doubt PE and do not feel workup for this is indicated. Patient's labs unremarkable, troponin less than 4 and do not feel delta is indicated given he said symptoms for well over 3 hours. X-ray negative for acute findings. Fluvid still pending but regardless I feel he is stable for discharge and suspect he has a asthma exacerbation in the setting of a URI. I will call him if he is positive for any of the viruses. He will follow-up with his PCP if not improving and return precautions given.Lung sounds now clear completely without any apical wheezing Differential Diagnosis Differential Diagnosis: Asthma exacerbation, influenza, pneumonia, NSTEMI Lab Data Lab results reviewed: Yes I reviewed the patient's lab results. ECG Data Attestation: I personally reviewed and interpreted this ECG (s) as follows: Prior ECG tracings: available for review Interpretation: sinus rate of 64 pr 139 no stemi Quality:SDOH Health Related Social Needs: No Data to Display PFSH All Active Problems (Updated 04/03/24 @ 22:09 by Grzegorz Byrd MD) Chest tightness (Acute) Asthma exacerbation (Acute) Left lateral epicondylitis (Acute) 40 mg Depo-medrol injection: 03/21/22 Kidney stone on left side (Acute) Medical History Kidney stones Asthma Hx of seizure disorder Per pt. states he was told they were seizure like symptoms related to stress hasn't had an event in 10+ years Surgical History S/P cholecystectomy S/P arthroscopic knee surgery S/P cystoscopy with ureteral stent placement H/O cystoscopy Social History Smoking/Tobacco Use Status: Current every day Tobacco Type: cigarettes Smoking risk assessment performed?: Yes Alcohol Intake: current Alcohol Intake frequency: holidays/special occasions only Drug use: Never Substance use type: does not use Do you feel safe at home: Yes Do you feel safe in your relationship?: Yes
[2024-04-03 21:56] LABS: BE (Venous) 3 mmol/L (-2-3); HCO3 (Venous) 28 mmol/L (23-28); O2 Sat (Venous) 90 %; TCO2 (Venous) 23 mmol/L (24-29); pCO2 (Venous) 41 mmHg (41-51); pH (Venous) 7.44 (7.31-7.41); pO2 (Venous) 50 mmHg
[2024-04-03 21:57] LABS: Abs Immature Grans 0.02 10^3/uL (0.0-0.06); Absolute Basophil Count 0.05 10^3/uL (0.0-0.2); Absolute Eosinophil Count 0.19 10^3/uL (0.0-0.7); Absolute Lymphocyte Count 3.45 10^3/uL (1.2-3.4); Absolute Monocyte Count 0.38 10^3/uL (0.1-0.8); Absolute Neutrophil Count 4.43 10^3/uL (1.2-6.7); Basophils % 0.6 %; Eosinophils % 2.2 %; HCT 51.6 % (40.0-50.0); HGB 17.7 g/dL (13.5-17.5); Immature Grans % 0.2 %; Lymphocytes % 40.5 %; MCH 30.1 pg (27.0-33.0); MCHC 34.3 % (32.0-36.0); MCV 88 fL (80-95); MPV 10.2 fL (8.0-11.0); Monocytes % 4.5 %; Platelet Count 197 10^3/uL (130-400); RBC 5.88 10^6/uL (4.36-5.78); RDW 13.1 % (11.8-14.1); RDW-SD 42.2 fL; WBC 8.52 10^3/uL (4.4-10.8)
[2024-04-03] MEDS: Albuterol/Ipratropium 3 ML UPD VIAL UPD (21:58)
[2024-04-03] MEDS: methylPREDNISolone SUCC 125 MG VIAL IVP (21:58)
--- NOTE | 2024-04-03 22:01 | DI.RAD_ITS ---
Exam(s) XR PORTABLE CHEST AP EXAM: XR PORTABLE CHEST AP CLINICAL HISTORY: cough, dyspnea. TECHNIQUE: 2D digital imaging was performed. COMPARISON: CR,XR XR CHEST 2V PA LATERAL from 11/09/2020 FINDINGS: Single AP portable view. Heart size is upper normal. The mediastinum is not widened. Left lung is clear. There is some peribronchial cuffing the right parahilar region. Pleural effusions. IMPRESSION: Mild right parahilar findings as described above. Follow-up recommended to rule out developing infil trate. There are no pleural effusions. DATA REPOSITORY: RADIATION DOSE DELIVERED:
--- NOTE | 2024-04-03 22:16 | DI.VRAD_ITS ---
PROCEDURE INFORMATION: Exam: XR Chest Exam date and time: 04/03/2024 10:01 PM Age: 38 years old Clinical indication: Cough, dyspnea TECHNIQUE: Imaging protocol: Radiologic exam of the chest. Views: 1 view. COMPARISON: CR XR CHEST 2V PA LATERAL 11/09/2020 4:14 PM FINDINGS: Lungs: Unremarkable. No consolidation. Pleural spaces: Unremarkable. No pleural effusion. No pneumothorax. Heart/Mediastinum: Unremarkable. No cardiomegaly. Bones/joints: Unremarkable. IMPRESSION: No acute findings. Dictated and Authenticated by: Rahul Cee MD. Orderin Rochelle Lantigua MD
[2024-04-03 22:23] LABS: ALT 58 U/L (16-63); AST 28 U/L (15-37); Albumin 3.8 g/dL (3.4-5.0); Alkaline Phosphatase 94 U/L (46-116); Anion Gap 7.7 mmol/L (3-11); BUN 11 mg/dL (7-18); Bilirubin, Total 0.44 mg/dL (0.2-1.0); CO2 29.3 mmol/L (21.0-32.0); CREATININE 1.2 mg/dL (0.70-1.30); Calcium 9.1 mg/dL (8.5-10.1); Chloride 106 mmol/L (98-107); Glucose 100 mg/dL (74-106); Magnesium 1.8 mg/dL (1.8-2.4); NT-proBNP 70 pg/mL (<300); Potassium 3.4 mmol/L (3.5-5.1); Sodium 143 mmol/L (136-145); Total Protein 7.3 g/dL (6.4-8.2); Troponin I < 4 ng/L (<or=76)
[2024-04-03 22:35] LABS: COVID-19 PCR Negative (Negative); Influenza A PCR Negative (Negative); Influenza B PCR Negative (Negative); RSV PCR Negative (Negative)
[2024-04-03 22:50] LABS: Source Nasopharynx
== END 2024-04-03 22:34 | disposition home or self-care (01) ==
LOC: ER 22:29
PROVIDERS: Emergency Provider Emergency Medicine; PCP Physician Assistant
DX: J45.901 Unspecified asthma with (acute) exacerbation; R07.89 Other chest pain; F17.210 Nicotine dependence, cigarettes, uncomplicated
CPT/HCPCS: 36415; 80053; 82805; 87637; 93005; 94640; 96374; 99284; 71045; 83735; 83880; 84443; 84484; 85025; 93010; J2919; J7620